=== PATIENT | male | born 1960 | race Caucasian/White ===

== ENCOUNTER 2016-11-13 09:24 | Inpatient (IN) | payer OTHER ==
--- NOTE | 2016-11-13 10:18 | PDOC ---
History of Present Illness - General Chief Complaint: Pain Stated Complaint: ARM PAIN Time Seen by Provider: 11/13/16 09:38 History Source: Patient Exam Limitations: No Limitations - History of Present Illness Occurred: reports: last week Severity: reports: mild, moderate Pain Location: reports: lower extremity, upper extremity Method of Injury: Yes: unknown Modifying Factors: improves with: None Past History - Travel Traveled outside of the country in the last 30 days: No Close contact w/someone who was outside of country & ill: No - Past Medical History Allergies/Adverse Reactions: Allergies Allergy/AdvReac Type Severity Reaction Status Date / Time phenytoin sodium Allergy Unknown Verified 11/13/16 09:31 [From Dilantin] phenytoin sodium extended Allergy Unknown Verified 11/13/16 09:31 [From Dilantin] Home Medications: Ambulatory Orders Amlodipine Besylate [Norvasc -] 10 mg PO DAILY #30 tablet 06/12/13 Aspirin [ASA -] 325 mg PO DAILY #30 tablet 06/13/13 Citalopram Hydrobromide [Citalopram HBr] 20 mg PO DAILY 08/18/15 Atorvastatin Calcium [Lipitor] 10 mg PO HS 12/29/15 Calcium Carbonate/Vitamin D3 [Oyster Shell 500-Vit D3 200 Tb] 1 each PO DAILY Carbidopa/Levodopa [Sinemet Cr 25-100 Tablet] 1 each PO TID 12/29/15 Labetalol HCl [Normodyne -] 100 mg PO DAILY 12/29/15 Lisinopril [Prinivil] 20 mg PO DAILY 12/29/15 Montelukast Na [Singulair -] 10 mg PO HS 12/29/15 Anemia: No Asthma: No (wheezing-since 12/2014) Cancer: No Cardiac Disorders: No CVA: Yes (08/19/14 left arm leg weakness-uses a cane) COPD: No CHF: No Dementia: Yes (parkinsons) Diabetes: No GI Disorders: No Disorders: No HTN: Yes Hypercholesterolemia: Yes Liver Disease: No Seizures: No Thyroid Disease: No - Surgical History Abdominal Surgery: Yes (hernia repair) - Suicide/Smoking/Psychosocial Hx Smoking History: Never smoked Have you smoked in the past 12 months: No Number of Cigarettes Smoked Daily: 20 'Breaking Loose' booklet given: 06/04/13 Hx Alcohol Use: No Drug/Substance Use Hx: No Substance Use Type: None *Physical Exam - Vital Signs Last Vital Signs Temp Pulse Resp BP Pulse Ox 98.3 F 69 18 104/59 97 11/13/16 09:11/13/16 09:29 11/13/16 09:29 11/13/16 09:11/13/16 09:29
[2016-11-13 10:37] LABS: BASOPHIL 0.6 % (0-2.0); EOSINOPHIL 3.7 % (0-4.5); MCH 31.4 pg (25.7-33.7); MEAN CELL VOLUME 92.4 fl (80-96); MEAN PLT VOLUME 8.2 fl (7.5-11.1); NEUTROPHILS 58.4 % (42.8-82.8); PLATELET COUNT 200 K/MM3 (134-434); RDW 13.6 % (11.9-15.9); WHITE BLOOD COUNT 7.7 K/mm3 (4.0-10.0)
[2016-11-13 10:44] LABS: URINE APPEARANCE CLEAR; URINE BILIRUBIN NEGATIVE (NEGATIVE); URINE BLOOD NEGATIVE (NEGATIVE); URINE COLOR YELLOW; URINE GLUCOSE (UA) NEGATIVE (NEGATIVE); URINE KETONE NEGATIVE (NEGATIVE); URINE LEUK ESTERASE TRACE (NEGATIVE); URINE NITRITE NEGATIVE (NEGATIVE); URINE PROTEIN NEGATIVE (NEGATIVE); URINE UROBILINOGEN NEGATIVE mg/dL (0.2-1.0)
[2016-11-13 10:56] LABS: URINE HYALINE CAST 1 /lpf; URINE MUCUS RARE; URINE RBC <1 /hpf (0-3); URINE WBC 2 /hpf (3-5)
[2016-11-13 11:04] LABS: ALBUMIN 3.7 g/dl (3.4-5.0); ALK PHOS 55 U/L (45-117); ANION GAP 7 (8-16); BILIRUBIN,TOTAL 0.4 mg/dL (0.2-1.0); CALCIUM 9.1 mg/dL (8.5-10.1); CO2 25 mmol/L (21-32); CREATININE 1.2 mg/dL (0.7-1.3); GLUCOSE,RANDOM 100 mg/dL (74-106); SGOT/AST 15 U/L (15-37); SGPT/ALT 23 U/L (12-78); TOT PROT 6.9 g/dl (6.4-8.2)
[2016-11-13 11:05] LABS: CPK 81 IU/L (39-308); TROPONIN I < 0.02 ng/ml (0.00-0.05)
--- NOTE | 2016-11-13 11:33 | PDOC ---
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 He reports having burning pain in his extremities for about a week, ranking his pain a 10/10 in pain intensity. He reports having a locking sensation in his right knee since the onset of his pain. He notes having some difficulties speaking, noting having to think before he speaks. He denies any history of trauma or injury. He notes having an aid since his stroke M- for about 4 hours per day. He denies any recent fevers, chills, headache or dizziness. He denies any recent nausea, vomit, diarrhea or constipation. He denies any recent chest pain or shortness of breath. He denies any recent dysuria, frequency, urgency or hematuria. Allergies: NKA Past surgical history: None reported. Social History: Nonsmoker. Denies EtOH use and recreational drug use. Primary Care Physician: Neuro: <Alex Zeng - Last Filed: 11/13/16 11:33> - General History Source: Patient Exam Limitations: No Limitations <Brandy Ndiaye - Last Filed: 11/13/16 15:08> - General Chief Complaint: Pain Stated Complaint: ARM PAIN Time Seen by Provider: 11/13/16 09:38 tPA Exclusion checklist 3-4.5h - Time Elapsed Date last known well: 11/11/16 (uncertain time frame) - Thrombolytic Therapy Candidate Is patient eligible for thrombolytic therapy: No - Exclusion Criteria 3-4.5 hr SBP greater than 185 or DBP greater than 110mmHg despite tx: No Recent IC/spinal surgery,head trauma or stroke<3mos.: No Hx IC hemorrhage, IC neoplasm, AV malformation or aneurysm: No Active internal bleeding: No Blding diathesis(low plt ct, inc PTT,INR>1.7 or use of NOAC): No Symptoms suggest subarachnoid hemorrhage: No CT demonstrates multilobar infarct(>1/3 cerebral hemiphere): No Arterial puncture at noncompressible site in previous 7 days: No Blood glucose concentration less than 50mg/dL (2.7mmol/L): No - Ineligibility reason(s) Reasons No tPA given: Outside of window - delayed arrival (unknown time frame , > 24 hours) <Brandy Ndiaye - Last Filed: 11/13/16 15:08> NIH Stroke Scale - Last Known Well Date/Time & Onset Date Last Known Well: 11/11/16 (unkonwn time frame >24 hours) - Initial Evaluation Level of consciousness: Alert Ask patient the month and their age: Answers both correctly Ask patient to open & close eyes; make fist and let go: Obeys both correctly Best gaze (horizontal eye movement): Normal Visual field testing: No visual field loss Facial paresis (Show teeth/raise eyebrows/close eyes tight): Normal symmetrical movement Motor Function: Left Arm: Drift Motor Function: Right Arm: Normal (extends arm 90 (or 45) degrees for 10 seconds without drift Motor Function: Left Leg: Drift Motor Function: Right Leg: Normal (extends leg 30 degrees for 5 seconds without drift) Limb Ataxia: Present in one limb (left arm) Sensory(Use pinprick test arms,legs,trunk,face/side to side): Normal Best language (Describe picture, name items, read sentences): No Aphasia Dysarthria (read several words): Normal articulation Extinction and Inattention: No abnormality (unknown time frame.) - Total Score NIH Stroke Scale Score: 3 <Brandy Ndiaye - Last Filed: 11/13/16 15:08> Past History <Alex Zeng - Last Filed: 11/13/16 11:33> - Past Medical History Anemia: No Asthma: No (wheezing-since 12/2014) Cancer: No Cardiac Disorders: No CVA: Yes (08/19/14 left arm leg weakness-uses a cane) COPD: No CHF: No Dementia: Yes (parkinsons) Diabetes: No GI Disorders: No Disorders: No HTN: Yes Hypercholesterolemia: Yes Liver Disease: No Seizures: No Thyroid Disease: No - Surgical History Abdominal Surgery: Yes (hernia repair) - Suicide/Smoking/Psychosocial Hx Smoking History: Never smoked Have you smoked in the past 12 months: No Number of Cigarettes Smoked Daily: 20 'Breaking Loose' booklet given: 06/04/13 Hx Alcohol Use: No Drug/Substance Use Hx: No Substance Use Type: None <SenthilBrandy - Last Filed: 11/13/16 15:08> - Past Medical History Allergies/Adverse Reactions: Allergies Allergy/AdvReac Type Severity Reaction Status Date / Time phenytoin sodium Allergy Unknown Verified 11/13/16 09:31 [From Dilantin] phenytoin sodium extended Allergy Unknown Verified 11/13/16 09:31 [From Dilantin] Home Medications: Ambulatory Orders Amlodipine Besylate 10 mg PO DAILY 11/13/16 Citalopram Hydrobromide [Citalopram HBr] 20 mg PO DAILY 11/13/16 Ipratropium/Albuterol Sulfate [Combivent Respimat Inhal [place]] 4 gm IH DAILY Labetalol HCl 100 mg PO DAILY 11/13/16 Lisinopril [Prinivil] 20 mg PO DAILY 11/13/16 Salmeterol/Fluticasone [Advair 250Mcg/50Mcg] 1 inh IH DAILY 11/13/16 Review of Systems - Review of Systems Able to Perform ROS?: Yes Comments:: 11/13/16 11:34 GENERAL/CONSTITUTIONAL: No fever or chills. No weakness. HEAD, EYES, EARS, NOSE AND THROAT: No change in vision. No ear pain or discharge. No sore throat. CARDIOVASCULAR: No chest pain or shortness of breath. RESPIRATORY: No cough, wheezing, or hemoptysis. GASTROINTESTINAL: No nausea, vomiting, diarrhea or constipation. GENITOURINARY: No dysuria, frequency, or change in urination. MUSCULOSKELETAL: +UE/LE pain and weakness. No joint or muscle swelling or pain. No neck or back pain. SKIN: No rash NEUROLOGIC: No headache, vertigo, loss of consciousness, or change in strength/ sensation. ENDOCRINE: No increased thirst. No abnormal weight change. HEMATOLOGIC/LYMPHATIC: No anemia, easy bleeding, or history of blood clots. ALLERGIC/IMMUNOLOGIC: No hives or skin allergy <Alex Zeng - Last Filed: 11/13/16 11:33> *Physical Exam - Vital Signs Last Vital Signs Temp Pulse Resp BP Pulse Ox 98.3 F 69 18 104/59 95 11/13/16 09:29 11/13/16 09:29 11/13/16 09:29 11/13/16 09:29 11/13/16 10:09 - Physical Exam Comments: 11/13/16 11:34 GENERAL: Awake, alert, and fully oriented, in no acute distress HEAD: No signs of trauma EYES: PERRLA, EOMI, sclera anicteric, conjunctiva clear ENT: Auricles normal inspection, hearing grossly normal, nares patent, oropharynx clear without exudates. Moist mucosa NECK: Normal ROM, supple, no lymphadenopathy, JVD, or masses LUNGS: Breath sounds equal, clear to auscultation bilaterally. No wheezes, and no crackles HEART: Regular rate and rhythm, normal S1 and S2, no murmurs, rubs or gallops ABDOMEN: Soft, nontender, normoactive bowel sounds. No guarding, no rebound. No masses EXTREMITIES: +LUE strength ? and LLE strength ?.Normal range of motion, no edema. No clubbing or cyanosis. No cords, erythema, or tenderness NEUROLOGICAL: Cranial nerves II through XII grossly intact. Normal speech, normal gait SKIN: Warm, Dry, normal turgor, no rashes or lesions noted. <Alex Zeng - Last Filed: 11/13/16 11:33> - Vital Signs Last Vital Signs Temp Pulse Resp BP Pulse Ox 98.3 F 69 18 104/59 95 11/13/16 09:29 11/13/16 09:29 11/13/16 09:29 11/13/16 09:29 11/13/16 10:09 <Brandy Ndiaye - Last Filed: 11/13/16 15:08> Heart Score/ECG Review #1 General ECG Interpretation: Sinus Rhythm, Normal Rate (sinus bradycardia 59 bpm) , Normal Intervals, No acute ischemic changes Compared to previous ECG there are: No significant change (comparison 12/29/15) 11/13/16 13:[address] / t wave changes <Brandy Ndiaye - Last Filed: 11/13/16 15:08> ED Treatment Course - LABORATORY CBC & Chemistry Diagram: 11/13/16 10:30 11/13/16 10:30 - ADDITIONAL ORDERS Additional order review: Laboratory Results 11/13/16 11/13/16 11/13/16 10:35 10:30 10:30 Sodium 140 Potassium 4.8 Chloride 108 H Carbon Dioxide 25 Anion Gap 7 L BUN 37 H Creatinine 1.2 Creat Clearance w eGFR > 60 Random Glucose 100 Calcium 9.1 Total Bilirubin 0.4 AST 15 D ALT 23 Alkaline Phosphatase 55 Creatine Kinase 81 Troponin I < 0.02 Total Protein 6.9 Albumin 3.7 Urine Color Yellow Urine Appearance Clear Urine pH 5.0 Urine Protein Negative Urine Glucose (UA) Negative Urine Ketones Negative Urine Blood Negative Urine Nitrite Negative Urine Bilirubin Negative Urine Urobilinogen Negative Urine RBC <1 Urine WBC 2 Ur Epithelial Cells Rare Hyaline Casts 1 Urine Mucus Rare 11/13/16 10:30 RBC 4.50 MCV 92.4 MCHC 34.0 RDW 13.6 MPV 8.2 Neutrophils % 58.4 Lymphocytes % 30.4 Monocytes % 6.9 Eosinophils % 3.7 Basophils % 0.6 <Alex Zeng - Last Filed: 11/13/16 11:33> - LABORATORY CBC & Chemistry Diagram: 11/13/16 10:30 11/13/16 10:30 - ADDITIONAL ORDERS Additional order review: Laboratory Results 11/13/16 11/13/16 11/13/16 10:35 10:30 10:30 Sodium 140 Potassium 4.8 Chloride 108 H Carbon Dioxide 25 Anion Gap 7 L BUN 37 H Creatinine 1.2 Creat Clearance w eGFR > 60 Random Glucose 100 Calcium 9.1 Total Bilirubin 0.4 AST 15 D ALT 23 Alkaline Phosphatase 55 Creatine Kinase 81 Troponin I < 0.02 Total Protein 6.9 Albumin 3.7 Urine Color Yellow Urine Appearance Clear Urine pH 5.0 Urine Protein Negative Urine Glucose (UA) Negative Urine Ketones Negative Urine Blood Negative Urine Nitrite Negative Urine Bilirubin Negative Urine Urobilinogen Negative Urine RBC <1 Urine WBC 2 Ur Epithelial Cells Rare Hyaline Casts 1 Urine Mucus Rare 11/13/16 10:30 RBC 4.50 MCV 92.4 MCHC 34.0 RDW 13.6 MPV 8.2 Neutrophils % 58.4 Lymphocytes % 30.4 Monocytes % 6.9 Eosinophils % 3.7 Basophils % 0.6 - RADIOLOGY Radiology Studies Ordered: Category Date Time Status HEAD CT WITHOUT CONTRAST [CT] Stat CT Scan 11/13/16 10:59 Ordered CHEST PA & LAT [RAD] Stat Radiology 11/13/16 11:00 Ordered <Brandy Ndiaye - Last Filed: 11/13/16 15:08> Medical Decision Making - Medical Decision Making 11/13/16 11:22 55 y M h/o htn, copd, carotid stenosis, prior cva ( 2013) HLD here with progressive bilateral upper extremity arm burning sensation. has had for several days, but worse last few days. no neck or back pain. also c/o right leg " locks up". lives at home alone with home service technician who is there m - F for four hours / day. denies cp or sob. no cough or fever. no other complaints. is able to ambulate with a cane in house. does not have stairs. on exam awake alert lungs clear heart rrr no mrg. abd soft nt nd. ext wwp. strenth on nuero 4/5 upper left ext, 4/5 left lower ext. sensation intact throughout. speech clear. CN intact plan: ct head r/o recurrent cva. labs ekg r/o myositis, electrolyte imbalance, infection. will d/w dr flores. 11/13/16 13:[address] with old left sided infarct, no acute changes. ekg unremarkable. labs normal. cxr normal. pending us left lower extremity. will d/w dr Flores, nuerology. 11/13/16 13:55 CT HEAD no acute changes, cxr negative. ekg unremarkable. labs normal. doppler negative for dvt. paged dr. flores, dr meraz covering. 11/13/16 14:16 d/w dr Lezama, ( nuerology) recommend observation for MRI, per old noted pt has had left arm pain, no documented h/o left sided weakness. pt unable to give accurate time frame, has been going on for several days. 11/13/16 14:18 11/13/16 14:58 <Brandy Ndiaye - Last Filed: 11/13/16 15:08> *DC/Admit/Observation/Transfer - Attestations Scribe Attestion: 11/13/16 11:34 Documentation prepared by Alex Zeng, acting as medical receptionist for Brandy Ndiaye MD. <Alex Zeng - Last Filed: 11/13/16 11:33> - Discharge Dispostion Admit: Yes <Brandy Ndiaye - Last Filed: 11/13/16 15:08> Diagnosis at time of Disposition: Weakness - Referrals Referrals: Demetrius Tpaia PA [Primary Care Provider] -
--- NOTE | 2016-11-13 16:00 | CON.NEURO ---
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 He reports having burning pain in his extremities for about a week, ranking his pain a 10/10 in pain intensity. noted by ER team to have new left sided weakness, though unclear when began > weeks, (?) ; not TPA candidate for that reason. He reports having a locking sensation in his right knee since the onset of his pain. also complains of numbness of his hands BL; He denies any history of trauma or injury. He notes having an aid since his stroke M-F for about 4 hours per day. He denies any recent fevers, chills, headache or dizziness. Allergies: NKA Past surgical history: None reported. CT HD : left PICA and EVERARDO infract chronic. NIH 9. 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 - Alcohol/Substance Use Hx Alcohol Use: No History of Substance Use: reports: None - Smoking History Smoking history: Never smoked Have you smoked in the past 12 months: No Aproximately how many cigarettes per day: 20 - Social History History of Recent Travel: No Home Medications - Allergies Allergies/Adverse Reactions: Allergies Allergy/AdvReac Type Severity Reaction Status Date / Time phenytoin sodium Allergy Unknown Verified 11/13/16 09:31 [From Dilantin] phenytoin sodium extended Allergy Unknown Verified 11/13/16 09:31 [From Dilantin] - Home Medications Home Medications: Ambulatory Orders Amlodipine Besylate 10 mg PO DAILY 11/13/16 Aspirin [ASA -] 81 mg PO HS 11/13/16 Ipratropium/Albuterol Sulfate [Combivent Respimat Inhal [place]] 4 gm IH DAILY Labetalol HCl 100 mg PO DAILY 11/13/16 Lisinopril [Prinivil] 20 mg PO DAILY 11/13/16 Salmeterol/Fluticasone [Advair 250Mcg/50Mcg] 1 inh IH DAILY 11/13/16 Physical Exam-Neuro Vital Signs: Vital Signs Temperature 98.1 F 11/13/16 12:57 Pulse Rate 56 L 11/13/16 12:57 Respiratory Rate 19 11/13/16 12:57 Blood Pressure 121/70 11/13/16 12:57 O2 Sat by Pulse Oximetry (%) 95 11/13/16 10:09 Constitutional: Yes: Well Nourished, No Distress - Neuro Exam Level Of Consciousness: Yes: Alert (awake and alert, EOMI, right facial, left sided weakness 4/5 with inc tone L >R, plantars up BL ) NIH Stroke Scale - Initial Evaluation Level of consciousness: Alert Ask patient the month and their age: Answers both correctly Ask patient to open & close eyes; make fist and let go: Obeys both correctly Best gaze (horizontal eye movement): Normal Visual field testing: No visual field loss Facial paresis (Show teeth/raise eyebrows/close eyes tight): Minor paralysis ( flattened nasolabial fold, asymmetry on smiling) Motor Function: Left Arm: Some effort against gravity Motor Function: Right Arm: Some effort against gravity Motor Function: Left Leg: Some effort against gravity Motor Function: Right Leg: Drift Limb Ataxia: No ataxia Sensory(Use pinprick test arms,legs,trunk,face/side to side): Mild to moderate decrease in sensation Best language (Describe picture, name items, read sentences): No Aphasia Dysarthria (read several words): Normal articulation Extinction and Inattention: No abnormality - Total Score NIH Stroke Scale Score: 9 Imaging - Results Cat Scan: Report Reviewed Problem List - Problems (1) Weakness Code(s): R53.1 - WEAKNESS (2) Carotid artery disease Code(s): I77.9 - DISORDER OF ARTERIES AND ARTERIOLES, UNSPECIFIED (3) Hemiparesis affecting left side as late effect of cerebrovascular accident Code(s): I69.354 - HEMIPLGA FOLLOWING CEREBRAL INFRC AFFECTING LEFT NONDOM SIDE Assessment/Plan HX of CVA with residual right sided weakness with more subacute left sided weakness, ( ? one week) with difficulty ambulating and numbness of hands BL check MRI BRAin and C spine stroke SHORT-DOPPLERS, ECHO, holter etc, lipids, B12, ESR, CACHORRO, tox screen cont ASA , statin for now rehab/PT consult Dr Adkins [phone]
[2016-11-13 16:24] VITALS: BMI 29.7
--- NOTE | 2016-11-13 18:38 | PN ---
Teaching Attending Note Name of Resident: Jesse Khan ATTENDING PHYSICIAN STATEMENT I saw and evaluated the patient. I reviewed the resident's note and discussed the case with the resident. I agree with the resident's findings and plan as documented. SUBJECTIVE: 55 year old male c/o 1 week history of progressively worsening numbness and burning sensation of b/l UE , left more then right . 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 Parkinsons Disease - - c/w current meds
[2016-11-13] MEDS ORDERED: ASPIRIN 81 MG CHEWABLE TABLETS PO SCH (22:00)
[2016-11-13] MEDS ORDERED: oxyCODONE HCL 5 MG TABLET PO ONE (22:03)
--- NOTE | 2016-11-13 23:02 | HP ---
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 He describes the pain as a burning pain which is 10/10 in intensity. The pain does not radiate anywhere and is confined to the affected limbs. He had a recent visit to the ER at [facility] for similar complaints. He was discharged from the ER and instructed to follow with a neurologist as an outpatient. He denies any history of trauma or injury. He denies any recent fevers, chills, headache or dizziness. He denies any recent nausea, vomit, diarrhea or constipation. He denies any recent chest pain or shortness of breath. He denies any recent dysuria, frequency, urgency or hematuria. ER course was notable for: (1) CT head with old infarct on the left and no acute changes (2) neurology consult (3) Recent Travel: PAST MEDICAL HISTORY: - see above PAST SURGICAL HISTORY: - none Social History: Smoking: denies Alcohol: denies Drugs: denies Family History: Allergies phenytoin sodium [From Dilantin] Allergy (Unknown, Verified 11/13/16 09:31) Pt states was given to him by accident as child. phenytoin sodium extended [From Dilantin] Allergy (Unknown, Verified 11/13/16 09 :31) Pt states was given to him by accident as child. HOME MEDICATIONS: Home Medications Medication Instructions Recorded Amlodipine Besylate 10 mg PO DAILY 11/13/16 Aspirin [ASA -] 81 mg PO HS 11/13/16 Atorvastatin Ca [Lipitor] 20 mg PO HS 11/13/16 Ipratropium/Albuterol Sulfate 4 gm IH DAILY 11/13/16 [Combivent Respimat Inhal [place]] Labetalol HCl 100 mg PO DAILY 11/13/16 Lisinopril [Prinivil] 20 mg PO DAILY 11/13/16 Salmeterol/Fluticasone [Advair 1 inh IH DAILY 11/13/16 250Mcg/50Mcg] REVIEW OF SYSTEMS CONSTITUTIONAL: Absent: fever, chills, diaphoresis, generalized weakness, malaise, loss of appetite, weight change HEENT: Absent: rhinorrhea, nasal congestion, throat pain, throat swelling, difficulty swallowing, mouth swelling, ear pain, eye pain, visual changes CARDIOVASCULAR: Absent: chest pain, syncope, palpitations, irregular heart rate, lightheadedness , peripheral edema RESPIRATORY: Absent: cough, shortness of breath, dyspnea with exertion, orthopnea, wheezing, stridor, hemoptysis GASTROINTESTINAL: Absent: abdominal pain, abdominal distension, nausea, vomiting, diarrhea, constipation, melena, hematochezia GENITOURINARY: Absent: dysuria, frequency, urgency, hesitancy, hematuria, flank pain, genital pain MUSCULOSKELETAL: Absent: myalgia, arthralgia, joint swelling, back pain, neck pain SKIN: Absent: rash, itching, pallor HEMATOLOGIC/IMMUNOLOGIC: Absent: easy bleeding, easy bruising, lymphadenopathy, frequent infections ENDOCRINE: Absent: unexplained weight gain, unexplained weight loss, heat intolerance, cold intolerance NEUROLOGIC: Absent: headache, dizziness, unsteady gait, seizure, mental status changes, bladder or bowel incontinence PSYCHIATRIC: Absent: anxiety, depression, suicidal or homicidal ideation, hallucinations. PHYSICAL EXAMINATION Vital Signs - 24 hr 11/13/16 11/13/16 16:19 19:09 Temperature 97.6 F 97.8 F Pulse Rate 55 L 59 L Respiratory 18 20 Rate Blood Pressure 130/75 134/84 O2 Sat by Pulse 96 Oximetry (%) GENERAL: Awake, alert, and fully oriented, in no acute distress. HEAD: Normal with no signs of trauma. EYES: Pupils equal, round and reactive to light, extraocular movements intact, sclera anicteric, conjunctiva clear. No lid lag. EARS, NOSE, THROAT: Ears normal, nares patent, oropharynx clear without exudates. Moist mucous membranes. NECK: Normal range of motion, supple without lymphadenopathy, JVD, or masses. LUNGS: Breath sounds equal, b/l inspiratory and expiratory wheezes. no crackles . No accessory muscle use. HEART: Regular rate and rhythm, normal S1 and S2 without murmur, rub or gallop. ABDOMEN: Soft, nontender, not distended, normoactive bowel sounds, no guarding, no rebound, no masses. No hepatomegaly or splenomegaly. MUSCULOSKELETAL: Normal range of motion at all joints. No bony deformities or tenderness. No CVA tenderness. UPPER EXTREMITIES: 2+ pulses, warm, well-perfused. No cyanosis. No clubbing. No peripheral edema. LOWER EXTREMITIES: 2+ pulses, warm, well-perfused. No calf tenderness. No peripheral edema. NEUROLOGICAL: Cranial nerves II-X intact. Normal speech. shuffling gait. 0/5 strength in LUE. Cogwheel rigidity SKIN: Warm, dry, normal turgor, no rashes or lesions noted, normal capillary refill. ASSESSMENT/PLAN: The patient is a 55 year old male, with a significant past medical history of 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 #New onset left sided pain and weakness -Neurology consult -MRI Brain -MRI C-Spine -Carotid dopplers -Echo -ASA 325 -AM CBC, CMP, MAG, PHOS #HTN -continue home norvasc -continue home labetolol -continue home lisinopril #COPD -continue home symbicort -continue home duonebs #FEN -no fluids indicated at this time -monitor lytes -regular diet #Prophy -scds -no gi prophy indicated Visit type - Emergency Visit Emergency Visit: Yes ED Registration Date: 11/13/16 Care time: The patient presented to the Emergency Department on the above date and was hospitalized for further evaluation of their emergent condition. - New Patient This patient is new to me today: Yes Date on this admission: 11/13/16 - Critical Care Critical Care patient: No
[2016-11-14] MEDS: ACETAMINOPHEN 325 MG TABLET (FP) PO PRN ×3 (01:35→22:56)
[2016-11-14 08:37] LABS: BASOPHIL 0.4 % (0-2.0); EOSINOPHIL 4.2 % (0-4.5); MCH 31.6 pg (25.7-33.7); MCHC 33.8 g/dl (32.0-35.9); MEAN CELL VOLUME 93.3 fl (80-96); MEAN PLT VOLUME 8.6 fl (7.5-11.1); PLATELET COUNT 208 K/MM3 (134-434); RDW 13.6 % (11.9-15.9); WHITE BLOOD COUNT 8.2 K/mm3 (4.0-10.0)
[2016-11-14] MEDS ORDERED: PT OWN MED DRAWER 7, Y5N ONE ×2 (09:06→21:15)
[2016-11-14] MEDS: LISINOPRIL 20 MG TABLET (FP) PO SCH (09:08)
[2016-11-14] MEDS: ASPIRIN 325 MG TABLET PO SCH (09:08)
[2016-11-14] MEDS: BUDESONIDE/FORMETEROL FUMARATE 80/4.5 mcg INHALER IH SCH ×3 (09:09→21:17)
[2016-11-14] MEDS: LABETALOL HCL 100 MG TABLET (FP) PO SCH (09:09)
[2016-11-14] MEDS: amLODIPine BESYLATE 10 MG TABLET (FP) PO SCH (09:09)
[2016-11-14 09:10] LABS: ANION GAP 5 (8-16); CALCIUM 9.2 mg/dL (8.5-10.1); CO2 27 mmol/L (21-32); GLUCOSE,RANDOM 139 mg/dL (74-106); PHOSPHOROUS 2.7 mg/dL (2.5-4.9); SGOT/AST 15 U/L (15-37); SGPT/ALT 25 U/L (12-78)
[2016-11-14 09:11] LABS: ALK PHOS 57 U/L (45-117); BILIRUBIN,TOTAL 0.5 mg/dL (0.2-1.0); TOT PROT 7.4 g/dl (6.4-8.2)
[2016-11-14 09:22] LABS: CHOLESTEROL 178 mg/dL (50-200)
[2016-11-14] MEDS ORDERED: PATIENT'S OWN MEDICATION (NON-FORMULARY) (Ipratropium/Albuterol Sulfate [Combivent Respima IH SCH (10:00)
--- NOTE | 2016-11-14 11:19 | EKG ---
Test Reason : Blood Pressure : / mmHG Vent. Rate : 059 BPM Atrial Rate : 059 BPM P-R Int : 160 ms QRS Dur : 090 ms QT Int : 390 ms P-R-T Axes : 039 -03 056 degrees QTc Int : 386 ms SINUS BRADYCARDIA SEPTAL INFARCT , AGE UNDETERMINED ABNORMAL ECG WHEN COMPARED WITH ECG OF 29-DEC-2015 13:41, NO SIGNIFICANT CHANGE WAS FOUND Confirmed by PIERRE VELASQUEZ MD ([id number]) on 11/14/2016 11:19:13 AM Referred By: Confirmed By:PIERRE VELASQUEZ MD
[2016-11-14] MEDS: oxyCODONE HCL 5 MG TABLET PO PRN ×2 (16:44→22:56)
--- NOTE | 2016-11-14 17:49 | PN ---
Teaching Attending Note Name of Resident: Jesse Khan ATTENDING PHYSICIAN STATEMENT I saw and evaluated the patient. I reviewed the resident's note and discussed the case with the resident. I agree with the resident's findings and plan as documented. SUBJECTIVE:continues to have B/L UE burning L >R has been progressively worsening for several weeks. also having LUE/LLE weakness Lower>upper. states he had similar symptoms to his R side when he was diagnosed with CVA several years ago but that was more severe in presentation. states he feels like there is a delay in reaction. he tells his arm to move and there is some time prior to his arm doing the action, was seeing Dr Araya who told him he had parkinsons and started him on sinemet and mirapex which he stopped himself because he contributed his symptoms to that. denies CP, SOB< fever, chills, N/V/ C/D, slurred speech OBJECTIVE: Last Vital Signs Temp Pulse Resp BP Pulse Ox 98.0 F 62 18 107/64 97 11/14/16 14:33 11/14/16 14:33 11/14/16 14:33 11/14/16 14:33 11/14/16 00:30 General NAD Neuro CN II-XII grossly intact. sensation decreased L hand limited to the digits , sensation grossly intact in the B/L LE. no propioception to the digits to the L digits. 2/5 LUE and LLE. muscle weakness in equal in the proximal and distal muscle on the LUE but worse in distal muscles on LLE. unable to pronate/ supinate on LUE + ataxic gait no bone point tenderness over cervical spine. no loss of sensation across the upper back ASSESSMENT AND PLAN: 55yo M PMH CVA with residual R sided weakness, HTN, Parkinsons, Carotid stenosis presented with L hemiparesis x1 week 1. L sided weakness/burning- symptoms can be consistent with sub-acute CVA however seems pt had symptoms prior to the week but also stated he had some burning earlier that has been progressively worsening and contributed it to his parkinsons meds. would hold meds for now. MRI/MRI head and neck. carotid doppler and echo negative for acute. if this is negative can consider EMG however doubt would be helpful. does not seem like its muscular disease as it seems mostly equal in the extremities. check A1c to r/o DM. 2. MYRTLE- likley dehdration. now improved 3. Parkinsons- hold meds for now. await eval and re-start at neuro discretion 4. HTN- controlled. on labetolol, lisinopril,. norvasc 5. PT eval
[2016-11-14] MEDS: ATORVASTATIN CA 20 MG TABLET (FP) PO SCH (21:17)
--- NOTE | 2016-11-14 23:53 | PN ---
Physical Exam: SUBJECTIVE: Patient seen and examined at bedside. patient complaining of same pain and burning in both hands in left foot, 11/10 on the pain scale. No other complaints OBJECTIVE: Vital Signs Period Temp Pulse Resp BP Sys/Kovacs Pulse Ox Last 24 Hr 97.4 F-98.8 F 57-80 14-20 107-131/64-80 97-97 GENERAL: The patient is awake, alert, and fully oriented, in no acute distress. Patient appears chachetic with prominent surface veins and enlarged knees. HEAD: Normal with no signs of trauma. EYES: extraocular movements intact, sclera anicteric, conjunctiva clear. No ptosis. ENT: Ears normal, nares patent, oropharynx clear without exudates, moist mucous membranes. NECK: Trachea midline, full range of motion, supple. LUNGS: Breath sounds equal, inspiratory and expiratory wheezes, no crackles, no accessory muscle use. HEART: Regular rate and rhythm, S1, S2 without murmur, rub or gallop. ABDOMEN: Soft, nontender, nondistended, normoactive bowel sounds, no guarding, no rebound. EXTREMITIES: 2+ pulses, warm, well-perfused, no edema. NEUROLOGICAL: Cranial nerves II through X grossly intact. Normal speech, gait not observed. Patient w/ 4/5 strength in left upper and lower extremities and 3/5 strength on right upper and lower extremities. PSYCH: Normal mood, normal affect. SKIN: Warm, dry, normal turgor, no rashes or lesions noted Laboratory Results - last 24 hr 11/14/16 11/14/16 11/14/16 07:30 07:30 07:30 WBC 8.2 RBC 4.86 Hgb 15.3 Hct 45.4 MCV 93.3 MCH 31.6 MCHC 33.8 RDW 13.6 Plt Count 208 MPV 8.6 Neutrophils % 61.0 Lymphocytes % 29.8 Monocytes % 4.6 Eosinophils % 4.2 Basophils % 0.4 ESR 7 Sodium 138 Potassium 4.4 Chloride 106 Carbon Dioxide 27 Anion Gap 5 L BUN 26 H D Creatinine 1.0 Creat Clearance w eGFR > 60 Random Glucose 139 H D Calcium 9.2 Phosphorus 2.7 D Magnesium 2.0 Total Bilirubin 0.5 D AST 15 ALT 25 Alkaline Phosphatase 57 Total Protein 7.4 Albumin 4.0 Triglycerides Cholesterol Total LDL Cholesterol HDL Cholesterol 11/14/16 07:30 WBC RBC Hgb Hct MCV MCH MCHC RDW Plt Count MPV Neutrophils % Lymphocytes % Monocytes % Eosinophils % Basophils % ESR Sodium Potassium Chloride Carbon Dioxide Anion Gap BUN Creatinine Creat Clearance w eGFR Random Glucose Calcium Phosphorus Magnesium Total Bilirubin AST ALT Alkaline Phosphatase Total Protein Albumin Triglycerides 230 H D Cholesterol 178 D Total LDL Cholesterol 71 HDL Cholesterol 61 H D Active Medications Generic Name Dose Route Start Last Admin Trade Name Freq PRN Reason Stop Dose Admin Acetaminophen 650 mg 11/13/16 22:04 11/14/16 01:35 Tylenol - PO 650 mg Q6H PRN Administration FEVER OR PAIN Acetaminophen 325 mg 11/14/16 15:51 11/14/16 22:56 Tylenol - PO 325 mg Q6H PRN Administration PAIN Amlodipine Besylate 10 mg 11/14/16 10:00 11/14/16 09:09 Norvasc - PO 10 mg DAILY RADHA Administration Aspirin 325 mg 11/14/16 10:00 11/14/16 09:08 Asa - PO 325 mg DAILY RADHA Administration Atorvastatin Calcium 20 mg 11/14/16 22:00 11/14/16 21:17 Lipitor - PO 20 mg HS RADHA Administration Budesonide/Formoterol Fumarate 1 puff 11/14/16 10:00 11/14/16 21:17 Symbicort 80/4.5mcg - IH 1 puff BID RADHA Administration Labetalol HCl 100 mg 11/14/16 10:00 11/14/16 09:09 Normodyne - PO 100 mg DAILY RADHA Administration Lisinopril 20 mg 11/14/16 10:00 11/14/16 09:08 Prinivil PO 20 mg DAILY RADHA Administration Non-Formulary Medication 4 gm 11/14/16 10:00 Ipratropium/Albuterol Sulfate [Combivent Respimat Inhal [place]] IH DAILY RADHA Oxycodone HCl 5 mg 11/14/16 15:50 11/14/16 22:56 Roxicodone - PO 5 mg Q6H PRN Administration PAIN ASSESSMENT/PLAN: The patient is a 55 year old male, with a significant past medical history of 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 #New onset left sided pain and weakness 2/2 CVA vs other neurological process vs autoimmune -Neurology consult -MRI Brain and cspine: no significant change since 2015 -Carotid dopplers: moderate atherosclerotic disease w/o stenosis -Echo: no change since 06/05/2013 -ASA 325 to decrease potential inflammation and for anticoagulation -f/u CACHORRO, ESR -check A1c in AM -percocet 5/325 Q6H prn pain #HTN- controlled -continue home norvasc -continue home labetolol -continue home lisinopril #COPD- controlled -continue home symbicort -continue home duonebs #HLD -continue home lipitor #FEN -no fluids indicated at this time -monitor lytes -regular diet #Prophy -scds -no gi prophy indicated #Dispo -admitted for neuro workup Visit type - Emergency Visit Emergency Visit: Yes ED Registration Date: 11/13/16 Care time: The patient presented to the Emergency Department on the above date and was hospitalized for further evaluation of their emergent condition. - New Patient This patient is new to me today: No - Critical Care Critical Care patient: No
[2016-11-15] MEDS: ACETAMINOPHEN 325 MG TABLET (FP) PO PRN ×3 (04:37→21:14)
[2016-11-15] MEDS: oxyCODONE HCL 5 MG TABLET PO PRN ×3 (04:37→21:13)
[2016-11-15 08:25] LABS: MCH 31.5 pg (25.7-33.7); MCHC 33.9 g/dl (32.0-35.9); MEAN CELL VOLUME 92.9 fl (80-96); MEAN PLT VOLUME 8.5 fl (7.5-11.1); PLATELET COUNT 210 K/MM3 (134-434); RDW 13.6 % (11.9-15.9)
[2016-11-15 09:13] LABS: ANION GAP 7 (8-16); CALCIUM 9.6 mg/dL (8.5-10.1); CO2 27 mmol/L (21-32); CREATININE 0.9 mg/dL (0.7-1.3); GLUCOSE,RANDOM 93 mg/dL (74-106)
[2016-11-15] MEDS ORDERED: PT OWN MED DRAWER 7, Y5N ONE ×2 (10:41→20:37)
[2016-11-15] MEDS: ASPIRIN 325 MG TABLET PO SCH (10:46)
[2016-11-15] MEDS: LABETALOL HCL 100 MG TABLET (FP) PO SCH (10:47)
[2016-11-15] MEDS: BUDESONIDE/FORMETEROL FUMARATE 80/4.5 mcg INHALER IH SCH ×2 (10:47→21:10)
[2016-11-15] MEDS: LISINOPRIL 20 MG TABLET (FP) PO SCH (10:47)
[2016-11-15] MEDS: amLODIPine BESYLATE 10 MG TABLET (FP) PO SCH (10:47)
--- NOTE | 2016-11-15 10:48 | PN ---
Progress Note, Physician Chief Complaint: arm pain History of Present Illness: Patient reports increasing arm pain, though pain has been going on for about 6 months. He best describes it as burning, but when I repeat the word burning, he then tells me that it isn't burning, suggesting that the description is at best an approximation (as is so often the case with abnormal sensations). He survived a stroke about 2 1/2 years ago affecting his right side and had marked improvement with rehab. He has been followed by Dr. Araya as an outpatient and has been subsequently diagnosed with parkinsonism. He was given pramipexole for the pain, suggesting to me that Dr. Araya may have thought that the pain was a restless legs equivalent, but the patient stopped the pramipexole when he thought that it made the pain worse. He says that he has a little discomfort on the left side, but that it is mostly in the right arm, deep (in the veins, not on the surface) and aggravated by closing his hand). - Current Medication List Current Medications: Active Medications Acetaminophen (Tylenol -) 650 mg PO Q6H PRN PRN Reason: FEVER OR PAIN Last Admin: 11/14/16 01:35 Dose: 650 mg Acetaminophen (Tylenol -) 325 mg PO Q6H PRN PRN Reason: PAIN Last Admin: 11/15/16 04:37 Dose: 325 mg Amlodipine Besylate (Norvasc -) 10 mg PO DAILY [facility] Last Admin: 11/14/16 09:09 Dose: 10 mg Aspirin (Asa -) 325 mg PO DAILY [facility] Last Admin: 11/14/16 09:08 Dose: 325 mg Atorvastatin Calcium (Lipitor -) 20 mg PO HS [facility] Last Admin: 11/14/16 21:17 Dose: 20 mg Budesonide/Formoterol Fumarate (Symbicort 80/4.5mcg -) 1 puff IH BID [facility] Last Admin: 11/14/16 21:17 Dose: 1 puff Labetalol HCl (Normodyne -) 100 mg PO DAILY [facility] Last Admin: 11/14/16 09:09 Dose: 100 mg Lisinopril (Prinivil) 20 mg PO DAILY [facility] Last Admin: 11/14/16 09:08 Dose: 20 mg Non-Formulary Medication (Ipratropium/Albuterol Sulfate [Combivent Respimat Inhal [place]]) 4 gm IH DAILY RADHA Oxycodone HCl (Roxicodone -) 5 mg PO Q6H PRN PRN Reason: PAIN Last Admin: 11/15/16 04:37 Dose: 5 mg - Objective Vital Signs: Vital Signs Temperature 97.8 F 11/15/16 06:00 Pulse Rate 54 L 11/15/16 06:00 Respiratory Rate 20 11/15/16 06:00 Blood Pressure 120/71 11/15/16 06:00 O2 Sat by Pulse Oximetry (%) 97 11/14/16 21:00 Neurological: Yes: Other (Level of consciousness: Alert Ask patient the month and their age: Answers both correctly Ask patient to open & close eyes; make fist and let go: Obeys both correctly Best gaze (horizontal eye movement): Normal Visual field testing: No visual field loss Facial paresis (Show teeth/ raise eyebrows/close eyes tight): Minor paralysis (flattened nasolabial fold, asymmetry on smiling) Motor Function: Left Arm: Some effort against gravity Motor Function: Right Arm: Some effort against gravity Motor Function: Left Leg: Some effort against gravity Motor Function: Right Leg: Drift Limb Ataxia: No ataxia Sensory(Use pinprick test arms,legs,trunk,face/side to side): Mild to moderate decrease in sensation on right Best language (Describe picture, name items, read sentences): No Aphasia Dysarthria (read several words): Normal articulation Extinction and Inattention: No abnormality) Labs: CBC, BMP 11/15/16 07:30 11/15/16 07:30 - ....Imaging Ultrasound: Report Reviewed (no hemodynamically significant stenosis noted, though plaque present, left greater than right.) MRI: Report Reviewed (There is high grade stenosis of right distal internal carotid artery.), Image Reviewed (he has old infarcts in the left cerebellum, left [place], and (to my eyes, lateral to the left thalamus, possibly with some thalamic involvement)) Problem List - Problems (1) Carotid artery disease Assessment/Plan: discrepancy between ultrasound and MRA reports, though MRA tends to overcall, the descrepancy is so great, I think that it is warranted to pursue further testing. Also the MRA is looking at the intracranial more than extracranial carotid so this may be the more important distinction. The bulk of the stenosis is on the assymtpomatic side, but may have implications in terms of collaterals so its worth pursuing from that standpoint. 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 Code(s): M79.603 - PAIN IN ARM, UNSPECIFIED
--- NOTE | 2016-11-15 17:58 | PN ---
Teaching Attending Note Name of Resident: Jesse Khan ATTENDING PHYSICIAN STATEMENT I saw and evaluated the patient. I reviewed the resident's note and discussed the case with the resident. I agree with the resident's findings and plan as documented. SUBJECTIVE: Patient complains of burning in both hands. OBJECTIVE: Vital Signs Period Temp Pulse Resp BP Sys/Kovacs Pulse Ox Last 24 Hr 97.8 F-98.4 F 54-80 18-20 112-144/68-84 97 HEART: S1S2, RRR LUNGS: Clear ABDOMEN: Soft, non-tender, non-distended, normal BS EXTREMITIES: No edema NEUROLOGICAL: Sensation intact, hand grasp 4/5 in both hands Current Medications Generic Name Dose Route Start Last Admin Trade Name Freq PRN Reason Stop Dose Admin Acetaminophen 650 mg 11/13/16 22:04 11/15/16 10:47 Tylenol - PO 650 mg Q6H PRN Administration FEVER OR PAIN Acetaminophen 325 mg 11/14/16 15:51 11/15/16 04:37 Tylenol - PO 325 mg Q6H PRN Administration PAIN Amlodipine Besylate 10 mg 11/14/16 10:00 11/15/16 10:47 Norvasc - PO 10 mg DAILY RADHA Administration Aspirin 325 mg 11/14/16 10:00 11/15/16 10:46 Asa - PO 325 mg DAILY RADHA Administration Atorvastatin Calcium 20 mg 11/14/16 22:00 11/14/16 21:17 Lipitor - PO 20 mg HS RADHA Administration Budesonide/Formoterol Fumarate 1 puff 11/14/16 10:00 11/15/16 10:47 Symbicort 80/4.5mcg - IH 1 puff BID RADHA Administration Gabapentin 300 mg 11/15/16 22:00 Neurontin - PO BID RADHA Labetalol HCl 100 mg 11/14/16 10:00 11/15/16 10:47 Normodyne - PO 100 mg DAILY RADHA Administration Lisinopril 20 mg 11/14/16 10:00 11/15/16 10:47 Prinivil PO 20 mg DAILY RADHA Administration Non-Formulary Medication 4 gm 11/14/16 10:00 Ipratropium/Albuterol Sulfate [Combivent Respimat Inhal [place]] IH DAILY RADHA Oxycodone HCl 5 mg 11/14/16 15:50 09/26/17 10:46 Roxicodone - PO 5 mg Q6H PRN Administration PAIN ASSESSMENT AND PLAN: 55yo M PMH CVA with residual R sided weakness, HTN, Parkinsons, Carotid stenosis presented with L hemiparesis x1 week 1. L sided weakness/burning- symptoms can be consistent with sub-acute CVA however seems pt had symptoms prior to the week but also stated he had some burning earlier that has been progressively worsening and contributed it to his parkinsons meds. would hold meds for now. MRI/MRI head and neck. carotid doppler and echo negative for acute. if this is negative can consider EMG however doubt would be helpful. does not seem like its muscular disease as it seems mostly equal in the extremities. check A1c to r/o DM. 2. MYRTLE- krystinley dehdration. now improved 3. Parkinsons- hold meds for now. await eval and re-start at neuro discretion 4. HTN- controlled. on labetolol, lisinopril,. norvasc 5. PT eval
--- NOTE | 2016-11-15 19:39 | PN ---
Physical Exam: SUBJECTIVE: Patient seen and examined at bedside. He states that the burning in his hands has not gotten better overnight and is only alleviated with Percocet. OBJECTIVE: Vital Signs Period Temp Pulse Resp BP Sys/Kovacs Pulse Ox Last 24 Hr 97.8 F-98.4 F 54-80 18-20 112-144/68-84 97 GENERAL: The patient is awake, alert, and fully oriented, in no acute distress. HEAD: Normal with no signs of trauma. EYES: extraocular movements intact, sclera anicteric, conjunctiva clear. No ptosis. NECK: Trachea midline, full range of motion, supple. LUNGS: Breath sounds equal, inspiratory and expiratory wheezes heard bilaterally , no accessory muscle use. HEART: Regular rate and rhythm, S1, S2 without murmur, rub or gallop. ABDOMEN: Soft, nontender, nondistended, normoactive bowel sounds, no guarding, no rebound. EXTREMITIES: 2+ pulses, warm, well-perfused, no edema. NEUROLOGICAL: Cranial nerves II through X grossly intact. Normal speech, Parkinsonian gait. strength 5/5 in upper extremities and right lower extremity, 4/5 strength in left lower extremity PSYCH: Normal mood, normal affect. SKIN: Warm, dry, normal turgor, no rashes or lesions noted Laboratory Results - last 24 hr 11/15/16 11/15/16 11/15/16 07:30 07:30 07:30 WBC 8.0 RBC 5.05 Hgb 15.9 Hct 46.9 MCV 92.9 MCH 31.5 MCHC 33.9 RDW 13.6 Plt Count 210 MPV 8.5 Sodium 138 Potassium 4.4 Chloride 104 Carbon Dioxide 27 Anion Gap 7 L BUN 24 H Creatinine 0.9 Random Glucose 93 D Hemoglobin A1c % 5.6 D Calcium 9.6 Active Medications Generic Name Dose Route Start Last Admin Trade Name Freq PRN Reason Stop Dose Admin Acetaminophen 650 mg 11/13/16 22:04 11/15/16 10:47 Tylenol - PO 650 mg Q6H PRN Administration FEVER OR PAIN Acetaminophen 325 mg 11/14/16 15:51 11/15/16 04:37 Tylenol - PO 325 mg Q6H PRN Administration PAIN Amlodipine Besylate 5 mg 11/15/16 19:12 Norvasc - PO DAILY RADHA Aspirin 325 mg 11/14/16 10:00 11/15/16 10:46 Asa - PO 325 mg DAILY RADHA Administration Atorvastatin Calcium 20 mg 11/14/16 22:00 11/14/16 21:17 Lipitor - PO 20 mg HS RADHA Administration Budesonide/Formoterol Fumarate 1 puff 11/14/16 10:00 11/15/16 10:47 Symbicort 80/4.5mcg - IH 1 puff BID RADHA Administration Carbidopa/Levodopa 1 each 11/16/16 07:00 Sinemet 25/100 - PO TIDAC RADHA Gabapentin 300 mg 11/15/16 22:00 Neurontin - PO TID RADHA Labetalol HCl 100 mg 11/14/16 10:00 11/15/16 10:47 Normodyne - PO 100 mg DAILY RADHA Administration Lisinopril 20 mg 11/14/16 10:00 11/15/16 10:47 Prinivil PO 20 mg DAILY RADHA Administration Non-Formulary Medication 4 gm 11/14/16 10:00 Ipratropium/Albuterol Sulfate [Combivent Respimat Inhal [place]] IH DAILY RADHA Oxycodone HCl 5 mg 11/14/16 15:50 11/15/16 10:46 Roxicodone - PO 5 mg Q6H PRN Administration PAIN Pramipexole Dihydrochloride 0.125 mg 11/15/16 22:00 Mirapex - PO BID [facility] ASSESSMENT/PLAN: The patient is a 55 year old male, with a significant past medical history of 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 #New onset left sided pain and weakness likely 2/2 to restless limb syndrome 2/ 2 parkinsons -Neurology consult -will restart Sinemet 25/100 TIDAC -will restart pramipexole .125 BID and will increase dose to .25 after two days -continue with gabapentin 300 TID -Will monitor patient's BP as the dopaminergic medications may lower BP -systolic BP goal in the 130's as per neuro; patient has stenosed right internal carotid and is functioning off of collateral flow. -ASA 325 to decrease potential inflammation and for anticoagulation -CACHORRO peding -ESR 7 -HbA1c 5.6 -percocet 5/325 Q6H prn pain #HTN- controlled; SBP goal in 130's as per neuro -decreased home norvasc from 10mg to 5 mg -continue home labetolol -continue home lisinopril #COPD- controlled -continue home symbicort -continue home duonebs #HLD -continue home lipitor #FEN -no fluids indicated at this time -monitor lytes -regular diet #Prophy -scds -no gi prophy indicated #Dispo -admitted for neuro workup Visit type - Emergency Visit Emergency Visit: Yes ED Registration Date: 11/13/16 Care time: The patient presented to the Emergency Department on the above date and was hospitalized for further evaluation of their emergent condition. - New Patient This patient is new to me today: No - Critical Care Critical Care patient: No
[2016-11-15] MEDS: GABAPENTIN 300 MG CAPSULE (FP) PO SCH (21:10)
[2016-11-15] MEDS: ATORVASTATIN CA 20 MG TABLET (FP) PO SCH (21:10)
[2016-11-15] MEDS: PRAMIPEXOLE DIHYDROCHLORIDE 0.125 MG TABLET PO SCH (21:11)
[2016-11-15] MEDS ORDERED: GABAPENTIN 300 MG CAPSULE (FP) PO SCH (22:00)
[2016-11-16] MEDS: oxyCODONE HCL 5 MG TABLET PO PRN ×2 (05:55→11:50)
[2016-11-16] MEDS: GABAPENTIN 300 MG CAPSULE (FP) PO SCH ×2 (05:56→13:23)
[2016-11-16] MEDS: ACETAMINOPHEN 325 MG TABLET (FP) PO PRN ×2 (05:56→11:51)
[2016-11-16] MEDS: CARBIDOPA/LEVODOPA 25/100 TABLET (FP) PO SCH ×2 (05:59→10:42)
[2016-11-16] MEDS ORDERED: PT OWN MED DRAWER 7, Y5N ONE ×2 (06:42→10:40)
[2016-11-16] MEDS ORDERED: amLODIPine BESYLATE 5 MG TABLET (FP) PO SCH (10:00)
[2016-11-16] MEDS: LABETALOL HCL 100 MG TABLET (FP) PO SCH (10:42)
[2016-11-16] MEDS: PRAMIPEXOLE DIHYDROCHLORIDE 0.125 MG TABLET PO SCH (10:42)
[2016-11-16] MEDS: ASPIRIN 325 MG TABLET PO SCH (10:42)
[2016-11-16] MEDS: BUDESONIDE/FORMETEROL FUMARATE 80/4.5 mcg INHALER IH SCH (10:42)
[2016-11-16] MEDS: LISINOPRIL 20 MG TABLET (FP) PO SCH (10:42)
[2016-11-16 13:37] VITALS: BP 113/68; PULSE 64; TEMP 98.6
--- NOTE | 2016-11-16 15:51 | DS ---
Physical Exam: SUBJECTIVE: Patient seen and examined at bedside. Patient states pain in hands are no different. Agrees with plan to restart parkinsons meds. OBJECTIVE: Vital Signs Period Temp Pulse Resp BP Sys/Kovacs Pulse Ox Last 24 Hr 97.8 F-98.6 F 55-65 18-20 113-142/68-80 97-97 PHYSICAL EXAM GENERAL: The patient is awake, alert, and fully oriented, in no acute distress. HEAD: Normal with no signs of trauma. EYES: PERRL, extraocular movements intact, sclera anicteric, conjunctiva clear. ENT: Ears normal, nares patent, oropharynx clear without exudates, moist mucous membranes. NECK: Trachea midline, full range of motion, supple. LUNGS: Breath sounds equal, wheezes in all moss b/l, no crackles, no accessory muscle use. HEART: Regular rate and rhythm, S1, S2 without murmur, rub or gallop. ABDOMEN: Soft, nontender, nondistended, normoactive bowel sounds, no guarding, no rebound, no hepatosplenomegaly, no masses. EXTREMITIES: 2+ pulses, warm, well-perfused, no edema. NEUROLOGICAL: Cranial nerves II through X grossly intact. Normal speech, gait not observed. Strength 5/5 in left limbs, 4/5 in right limbs PSYCH: Normal mood, normal affect. SKIN: Warm, dry, normal turgor, no rashes or lesions noted. 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 In the ED, the Patient was found to have a shuflling gait, left sided weakness and cogwheel rigidity. The patient was admitted to rule out an acute stroke. A head CT showed old strokes on the left and no acute stroke. Dr. Adkins with neurology was consulted. An MRI showed old ischemia and no acute changes. The patient had not taken his parkinson's medications for months. The patient's pain was controlled with percocet. The patient was discharged home with instructions to resume his sinemet and mirapex as well as decrease the dose of his amlodipine to 5mg. He was also started on gabapentin TID. He was instructed to return to his primary care doctor in one week to have his BP checked to assess whether the amlodipine needs to be increased again. He was also instructed to follow up with Dr. Araya within one week. Date of Discharge: 11/16/16 Minutes to complete discharge: 20 Discharge Summary Reason For Visit: WEAKNESS Current Active Problems Arm pain (Acute) Hemiparesis affecting left side as late effect of cerebrovascular accident ( Acute) Weakness (Acute) Condition: Stable - Instructions Diet, Activity, Other Instructions: Your arm burning and pain may have been due to advancement of your parkinsons disease and restless limb syndrome. You are being restarted on Sinemet 25/100 three times a day with meals. You will also be started on pramipexole 0.125 mg twice a day to be taken once tonight and two times tomorrow. Then you will need to continue taking this medication at a dose of 0.25 mg twice a day. You will also take gabapentin 300 mg three times a day for your arm burning / pain. These medications have been prescribed to your pharmacy. Your amlodipine has also been lowered to 5 mg daily instead of the 10 mg it was at previously. Please follow up with your primary care doctor in 1 week to have your blood pressure checked and to assess whether to keep you on 5 mg of amlodipine or to go back on 10 mg of amlodipine. Your blood pressure goal is for your systolic blood pressure to be in the 130s (due to your requiring slightly elevated blood pressure for your collateral circulation in your brain as was explained in the hospital to you). You will also need to follow up with Dr. Araya in 1 week. Please call your doctor or come back to the ER if your symptoms worsen. Referrals: Rainer Araya MD [Staff Physician] - 1 Week Demetrius Tapia PA [Primary Care Provider] - 1 Week Disposition: HOME - Home Medications Comprehensive Discharge Medication List: Ambulatory Orders Amlodipine Besylate 10 mg PO DAILY 11/13/16 Aspirin [ASA -] 81 mg PO HS 11/13/16 Atorvastatin Ca [Lipitor] 20 mg PO HS 11/13/16 Ipratropium/Albuterol Sulfate [Combivent Respimat Inhal [place]] 4 gm IH DAILY Labetalol HCl 100 mg PO DAILY 11/13/16 Lisinopril [Prinivil] 20 mg PO DAILY 11/13/16 Salmeterol/Fluticasone [Advair 250Mcg/50Mcg -] 1 inh IH DAILY 11/13/16 Amlodipine Besylate [Norvasc -] 5 mg PO DAILY tablet 11/16/16 Atorvastatin Ca [Lipitor] 20 mg PO HS tablet 11/16/16 Carbidopa/Levodopa 25/100 [Sinemet 25/100 -] 1 each PO TIDAC #90 tablet Gabapentin 300 mg PO TID #90 capsule 11/16/16 Pramipexole Di-HCl [Mirapex] 0.25 mg PO BID #60 tab 11/16/16 Pramipexole Dihydrochloride [Mirapex -] 0.125 mg PO BID #3 tablet 11/16/16 Problem List - Problems (1) Arm pain Code(s): M79.603 - PAIN IN ARM, UNSPECIFIED Qualifiers: Laterality: right Qualified Code(s): M79.601 - Pain in right arm (2) Weakness Code(s): R53.1 - WEAKNESS This patient is new to me today: No Emergency Visit: Yes ED Registration Date: 11/13/16 Care time: The patient presented to the Emergency Department on the above date and was hospitalized for further evaluation of their emergent condition. Critical Care patient: No - Discharge Referral Referred to [facility] Med P.C.: No
--- NOTE | 2016-11-16 18:04 | PN ---
Teaching Attending Note Name of Resident: Jesse Khan ATTENDING PHYSICIAN STATEMENT I saw and evaluated the patient. I reviewed the resident's note and discussed the case with the resident. I agree with the resident's findings and plan as documented. SUBJECTIVE: OBJECTIVE: Vital Signs Period Temp Pulse Resp BP Sys/Kovacs Pulse Ox Last 24 Hr 98.1 F-98.6 F 64-65 18-20 113-142/68-79 97-97 ASSESSMENT AND PLAN:
== END 2016-11-16 15:52 | disposition home or self-care (01) | DRG 58 ==
LOC: JERFT 09:24 → JER 09:24 → JERBED 15:03 → OBSVTOIN 15:21 → J6S 17:05
PROVIDERS: ADMIT Internal Medicine; ATTEND Internal Medicine
DX: I69.854 Hemiplegia and hemiparesis following other cerebrovascular disease affecting left non-dominant side (principal); G20 Parkinson's disease; N17.9 Acute kidney failure, unspecified; I10 Essential (primary) hypertension; J44.9 Chronic obstructive pulmonary disease, unspecified; E78.5 Hyperlipidemia, unspecified; I65.29 Occlusion and stenosis of unspecified carotid artery; R53.1 Weakness
CPT/HCPCS: 36415; 70450-TC; 70544-TC; 70551-TC; 71020-TC; 72141-TC; 80048; 80053; 80061; 80171; 81003; 81015; 83036; 83735; 84100; 84484; 85025; 85027; 85651; 86038; 93005; 93010; 93306-TC; 93880-TC; 93971-TC; 97116-GP; 97161-GP; 99284-25; G0378

== ENCOUNTER 2016-11-24 08:16 | Emergency (ER) | payer OTHER ==
[2016-11-24 08:21] VITALS: BP 110/62; PULSE 66; TEMP 98.3; BMI 28.3
--- NOTE | 2016-11-24 09:13 | PDOC ---
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 He reports having burning pain in his extremities or one month, was told to follow-up with Dr. Araya however patient was unable to obtain an appointment until December 13. Patient states that his Neurontin is not working and is requesting other pain medication. No change in symptoms since previous evaluation. He denies any history of trauma or injury. Timing/Duration: other (greater than 1 month) Severity: moderate Associated Symptoms: reports: denies symptoms Past History - Past Medical History Allergies/Adverse Reactions: Allergies Allergy/AdvReac Type Severity Reaction Status Date / Time phenytoin sodium Allergy Unknown Verified 11/24/16 08:21 [From Dilantin] phenytoin sodium extended Allergy Unknown Verified 11/24/16 08:21 [From Dilantin] Home Medications: Ambulatory Orders Amlodipine Besylate 10 mg PO DAILY 11/13/16 Aspirin [ASA -] 81 mg PO HS 11/13/16 Atorvastatin Ca [Lipitor] 20 mg PO HS 11/13/16 Ipratropium/Albuterol Sulfate [Combivent Respimat Inhal [place]] 4 gm IH DAILY Labetalol HCl 100 mg PO DAILY 11/13/16 Lisinopril [Prinivil] 20 mg PO DAILY 11/13/16 Salmeterol/Fluticasone [Advair 250Mcg/50Mcg -] 1 inh IH DAILY 11/13/16 Carbidopa/Levodopa 25/100 [Sinemet 25/100 -] 1 each PO TIDAC #90 tablet Gabapentin 300 mg PO TID #90 capsule 11/16/16 Anemia: No Asthma: (wheezing-since 12/2014) Cancer: No Cardiac Disorders: No CVA: Yes (08/19/14 right sided weakness) COPD: Yes CHF: No Dementia: Yes (parkinsons) Diabetes: No GI Disorders: No Disorders: No HTN: Yes Hypercholesterolemia: Yes Liver Disease: No Seizures: No Thyroid Disease: No - Surgical History Abdominal Surgery: Yes (hernia repair) - Suicide/Smoking/Psychosocial Hx Smoking History: Never smoked Have you smoked in the past 12 months: No Number of Cigarettes Smoked Daily: 20 Information on smoking cessation initiated: No 'Breaking Loose' booklet given: 06/04/13 Hx Alcohol Use: No Drug/Substance Use Hx: No Substance Use Type: None Review of Systems - Review of Systems Constitutional: No: Symptoms Reported HEENTM: No: Symptoms Reported Respiratory: No: Symptoms reported Cardiac (ROS): No: Symptoms Reported ABD/GI: No: Symptoms Reported : No: Symptoms Reported Musculoskeletal: Yes: Joint Pain, Muscle Pain. No: Joint Swelling, Muscle Weakness, Neck Pain, Joint Stiffness Integumentary: No: Symptoms Reported, Erythema, Pallor, Pruritus, Rash Neurological: Yes: Unsteady Gait ( walk with a cane). No: Symptoms reported, Paresthesia, Tingling, Tremors, Weakness, Dizziness All Other Systems: Reviewed and Negative *Physical Exam - Vital Signs Last Vital Signs Temp Pulse Resp BP Pulse Ox 98.3 F 66 17 110/62 97 11/24/16 08:19 11/24/16 08:19 11/24/16 08:19 11/24/16 08:19 11/24/16 08:19 - Physical Exam General Appearance: Yes: Appropriately Dressed. No: Apparent Distress Neck: negative: Tender, Tender lateral, Tender midline Respiratory/Chest: positive: Lungs Clear, Normal Breath Sounds. negative: Respiratory Distress, Accessory Muscle Use Cardiovascular: positive: Regular Rhythm, Regular Rate Gastrointestinal/Abdominal: positive: Normal Bowel Sounds, Soft. negative: Tender Musculoskeletal: positive: Normal Inspection. negative: Decreased Range of Motion, Muscle Spasm, Vertebral Tenderness Extremity: positive: Normal Capillary Refill, Normal Inspection, Normal Range of Motion, Pelvis Stable. negative: Tender, Delayed Capillary Refill, Swelling , Calf Tenderness, Erythema, Inflammation Integumentary: positive: Normal Color, Dry. negative: Erythema, Rash, Swelling , Ecchymosis, Bruising Neurologic: positive: Alert, Normal Mood/Affect, Normal Response Medical Decision Making - Medical Decision Making 11/24/16 20:15 A/P: Patient with chronic pain to knees and left arm, called Dr. Araya was able to obtain an appointment for patient today at 12:30 PM, patient will report immediately to office for evaluation and treatment. I discussed the physical exam findings and final diagnoses with the patient. I answered all of the patient's questions. The patient was satisfied with the care received and felt comfortable with the discharge plan and treatment plan. The patient will immediately for follow-up and will return to the Emergency Department with any new, persistent or worsening symptoms. *DC/Admit/Observation/Transfer Diagnosis at time of Disposition: Chronic pain of left upper extremity - Discharge Dispostion Disposition: HOME Condition at time of disposition: Good Admit: No - Referrals Referrals: Rainer Araya MD [Staff Physician] - (Follow up today at 12:30)
== END 2016-11-24 09:19 | disposition home or self-care (01) ==
LOC: JERFT 08:16
DX: M79.602 Pain in left arm (principal); I69.851 Hemiplegia and hemiparesis following other cerebrovascular disease affecting right dominant side; I10 Essential (primary) hypertension; I65.29 Occlusion and stenosis of unspecified carotid artery; J44.9 Chronic obstructive pulmonary disease, unspecified; G31.83 Neurocognitive disorder with Lewy bodies; F02.80 Dementia in other diseases classified elsewhere, unspecified severity, without behavioral disturbance, psychotic disturbance, mood disturbance, and anxiety; R26.89 Other abnormalities of gait and mobility; Z99.89 Dependence on other enabling machines and devices
CPT/HCPCS: 99281-25

== ENCOUNTER 2016-11-29 09:25 | Observation (INO) | payer OTHER ==
[2016-11-29 09:39] VITALS: BMI 25.8
[2016-11-29 10:48] LABS: BASOPHIL 0.4 % (0-2.0); EOSINOPHIL 2.9 % (0-4.5); MCH 30.7 pg (25.7-33.7); MCHC 33.1 g/dl (32.0-35.9); MEAN CELL VOLUME 92.8 fl (80-96); NEUTROPHILS 63.5 % (42.8-82.8); PLATELET COUNT 213 K/MM3 (134-434); RDW 13.7 % (11.9-15.9)
[2016-11-29 11:18] LABS: ALBUMIN 3.7 g/dl (3.4-5.0); ALK PHOS 53 U/L (45-117); ANION GAP 10 (8-16); BILIRUBIN,TOTAL 0.5 mg/dL (0.2-1.0); CALCIUM 8.9 mg/dL (8.5-10.1); CO2 24 mmol/L (21-32); GLUCOSE,RANDOM 92 mg/dL (74-106); SGOT/AST 15 U/L (15-37); SGPT/ALT 20 U/L (12-78); TOT PROT 6.6 g/dl (6.4-8.2)
--- NOTE | 2016-11-29 13:11 | PDOC ---
History of Present Illness - General Chief Complaint: Pain Stated Complaint: PAIN Time Seen by Provider: 11/29/16 09:32 History Source: Patient Exam Limitations: No Limitations - History of Present Illness Initial Comments: 11/29/16 12:18 56-year-old male presents to the ED with continual burning to his arms hands and feet for the past few months despite being on Neurontin and Naprosyn. Patient states was seen by Dr. Araya on the fifth which she was told he was started new medication but states went to the pharmacy who stated medication will not be ready to the . Patient states the burning tingling pain is keeping him up at night causing him increased irritability and inability to function on a daily basis. Patient is no other complaints at this time. Patient does have history of CVA with left-sided residual hypertension, high cholesterol , and denies any drug or alcohol use presently. Timing/Duration: constant, getting worse Severity: moderate Associated Symptoms: reports: denies symptoms Past History - Travel Traveled outside of the country in the last 30 days: No Close contact w/someone who was outside of country & ill: No - Past Medical History Allergies/Adverse Reactions: Allergies Allergy/AdvReac Type Severity Reaction Status Date / Time phenytoin sodium Allergy Unknown Verified 11/29/16 09:42 [From Dilantin] phenytoin sodium extended Allergy Unknown Verified 11/29/16 09:42 [From Dilantin] Home Medications: Ambulatory Orders Amlodipine Besylate 10 mg PO DAILY 11/13/16 Aspirin [ASA -] 81 mg PO HS 11/13/16 Atorvastatin Ca [Lipitor] 20 mg PO HS 11/13/16 Ipratropium/Albuterol Sulfate [Combivent Respimat Inhal [place]] 4 gm IH DAILY Labetalol HCl 100 mg PO DAILY 11/13/16 Lisinopril [Prinivil] 20 mg PO DAILY 11/13/16 Salmeterol/Fluticasone [Advair 250Mcg/50Mcg -] 1 inh IH DAILY 11/13/16 Carbidopa/Levodopa 25/100 [Sinemet 25/100 -] 1 each PO TIDAC #90 tablet Gabapentin 300 mg PO TID #90 capsule 11/16/16 Naproxen [Naprosyn -] 500 mg PO BID 11/29/16 Anemia: No Asthma: (wheezing-since 12/2014) Cancer: No Cardiac Disorders: No CVA: Yes (08/19/14 right sided weakness) COPD: Yes CHF: No Dementia: Yes (parkinsons) Diabetes: No GI Disorders: No Disorders: No HTN: Yes Hypercholesterolemia: Yes Liver Disease: No Seizures: No Thyroid Disease: No Other medical history: Parkinson's disease? - Surgical History Abdominal Surgery: Yes (hernia repair) - Suicide/Smoking/Psychosocial Hx Smoking History: Former smoker Have you smoked in the past 12 months: No Number of Cigarettes Smoked Daily: 20 If you are a former smoker, when did you quit?: 2014 Information on smoking cessation initiated: No 'Breaking Loose' booklet given: 06/04/13 Hx Alcohol Use: No Drug/Substance Use Hx: No Substance Use Type: None Patient Lives Alone: No Lives with/in: lives alone Review of Systems - Review of Systems Able to Perform ROS?: Yes Constitutional: No: Symptoms Reported HEENTM: No: Symptoms Reported Respiratory: No: Symptoms reported Cardiac (ROS): No: Symptoms Reported ABD/GI: No: Symptoms Reported : No: Symptoms Reported Musculoskeletal: Yes: Muscle Pain Integumentary: No: Symptoms Reported Neurological: Yes: Other (burning to hands and feet) Hematologic/Lymphatic: No: Symptoms Reported *Physical Exam - Vital Signs Last Vital Signs Temp Pulse Resp BP Pulse Ox 98.6 F 65 18 126/88 95 11/29/16 09:35 11/29/16 09:35 11/29/16 09:35 11/29/16 09:35 11/29/16 09:35 - Physical Exam General Appearance: Yes: Nourished, Appropriately Dressed. No: Apparent Distress HEENT: negative: Pale Conjunctivae Neck: positive: Supple Respiratory/Chest: positive: Lungs Clear, Normal Breath Sounds. negative: Respiratory Distress, Accessory Muscle Use Cardiovascular: positive: Regular Rhythm, Regular Rate. negative: Murmur Gastrointestinal/Abdominal: positive: Soft. negative: Tenderness Musculoskeletal: negative: CVA Tenderness Extremity: positive: Normal Capillary Refill Integumentary: positive: Normal Color, Warm, Moist Neurologic: positive: Normal Mood/Affect, Motor Strength 5/5 ED Treatment Course - LABORATORY CBC & Chemistry Diagram: 11/29/16 10:40 11/29/16 10:40 - ADDITIONAL ORDERS Additional order review: Laboratory Results 11/29/16 10:40 Sodium 141 Potassium 4.6 Chloride 107 Carbon Dioxide 24 Anion Gap 10 BUN 28 H Creatinine 1.0 Creat Clearance w eGFR > 60 Random Glucose 92 Calcium 8.9 Magnesium 2.0 Total Bilirubin 0.5 AST 15 ALT 20 Alkaline Phosphatase 53 Total Protein 6.6 Albumin 3.7 11/29/16 10:40 RBC 4.34 MCV 92.8 MCHC 33.1 RDW 13.7 MPV 8.0 Neutrophils % 63.5 Lymphocytes % 26.2 Monocytes % 7.0 Eosinophils % 2.9 Basophils % 0.4 - Medications Given in the ED: ED Medications Discontinued Medications Generic Name Dose Route Start Last Admin Trade Name Freq PRN Reason Stop Dose Admin Oxycodone/Acetaminophen 1 combo 11/29/16 11:22 11/29/16 11:30 Percocet 5/325 - PO 11/29/16 11:23 1 combo ONCE ONE Administration Medical Decision Making - Medical Decision Making 11/29/16 13:21 Patient here with continual burning to the extremities with history of Parkinson 's, RLS and CVA. Patient was seen by Dr. Araya on the which she was given a new medication called Mirapex but states was unable to pick it up since it was not ready to be filled until the . Patient here with continual burning despite being seen twice here in [facility]. Called and spoke to Dr. Araya who states patient should receive Mirapex 0.25 mg in the ER and discharge home with recommendations to [facility]. He states the pharmacy still is not have the medication that he may come to the office since he has samples for the patient. Patient given 1 dose of Percocet here in the ER for immediate relief of discomfort. patient was ordered for CBC< COMP< AND MAG. 11/29/16 13:29 Called pharmacy Spoke to the pharmacist who states patient had a refill of this medication the and it was dispensed. Will check patient's belongings for Mirapex medication 11/29/16 14:04 As per patient patient stopped taking it on the first after taking it for 3 days without any improvement of symptoms. Patient was given the medication from the hospitalist here in [facility] when he was discharged. Patient stating he does not want to go home and the pain is unbearable despite receiving Percocet here. Patient is requesting that he be admitted. Patient is also requesting another neurologist. Call placed to Dr. Olson. 11/29/16 14:[address] [facility] under Dr. Morris and case discussed with attending. *DC/Admit/Observation/Transfer Diagnosis at time of Disposition: Burning sensation in lower extremity, Intractable pain - Discharge Dispostion Admit: Yes
[2016-11-29] MEDS ORDERED: PRAMIPEXOLE DIHYDROCHLORIDE 0.25 MG TABLET PO ONE (13:27)
--- NOTE | 2016-11-29 14:40 | PDOC ---
*Physical Exam - Vital Signs Last Vital Signs Temp Pulse Resp BP Pulse Ox 98.6 F 65 18 126/88 95 11/29/16 09:35 11/29/16 09:35 11/29/16 09:35 11/29/16 09:35 11/29/16 09:35 ED Treatment Course - LABORATORY CBC & Chemistry Diagram: 11/29/16 10:40 11/29/16 10:40 - ADDITIONAL ORDERS Additional order review: Laboratory Results 11/29/16 10:40 Sodium 141 Potassium 4.6 Chloride 107 Carbon Dioxide 24 Anion Gap 10 BUN 28 H Creatinine 1.0 Creat Clearance w eGFR > 60 Random Glucose 92 Calcium 8.9 Magnesium 2.0 Total Bilirubin 0.5 AST 15 ALT 20 Alkaline Phosphatase 53 Total Protein 6.6 Albumin 3.7 11/29/16 10:40 RBC 4.34 MCV 92.8 MCHC 33.1 RDW 13.7 MPV 8.0 Neutrophils % 63.5 Lymphocytes % 26.2 Monocytes % 7.0 Eosinophils % 2.9 Basophils % 0.4 - RADIOLOGY Radiology Studies Ordered: Category Date Time Status CHEST PA & LAT [RAD] Stat Radiology 11/29/16 14:28 Ordered - Medications Given in the ED: ED Medications Discontinued Medications Generic Name Dose Route Start Last Admin Trade Name Freq PRN Reason Stop Dose Admin Oxycodone/Acetaminophen 1 combo 11/29/16 11:22 11/29/16 11:30 Percocet 5/325 - PO 11/29/16 11:23 1 combo ONCE ONE Administration Pramipexole Dihydrochloride 0.25 mg 11/29/16 13:27 11/29/16 14:15 Mirapex - PO 11/29/16 13:28 0.25 mg ONCE ONE Administration Medical Decision Making - Medical Decision Making 11/29/16 14:40 Pt seen by the Advanced Practice Provider under my direct supervision Ancillary studies reviewed I agree with plan as outlined by the Advanced Practice Provider *DC/Admit/Observation/Transfer Diagnosis at time of Disposition: Burning sensation in lower extremity, Intractable pain - Referrals Referrals: Rainer Araya MD [Primary Care Provider] - - Patient Instructions - Post Discharge Activity
--- NOTE | 2016-11-29 14:43 | HP ---
Admitting History and Physical - Admission History of Present Illness: 55 year old male, with a significant past medical history of CVA in 2013 with residual R sided weakness (hx of smoking 2 packs/day) , carotid stenosis, COPD, and HTN, who presents to the emergency department with burning sensation in his bilateral UE burning sensation because of which he is not able to sleep he was recently admitted for this same problem at hospital started on mirapex and sinemet and he when to see dr ponce on mondaynov 25 for follow up he says he doesnot have parkinson and refuse to take that medicine and wants to see another neurologist in ER he still complaining of bilateral UE burning got percocet and mirapex History Source: Patient, Medical Record - Past Medical History QC ANALYST: Yes: CVA Cardiovascular: Yes: HTN Pulmonary: Yes: COPD - Smoking History Smoking history: Former smoker Have you smoked in the past 12 months: No Aproximately how many cigarettes per day: 20 If you are a former smoker, when did you quit?: 2014 - Alcohol/Substance Use Hx Alcohol Use: No History of Substance Use: reports: None - Social History History of Recent Travel: No Home Medications - Allergies Allergies/Adverse Reactions: Allergies Allergy/AdvReac Type Severity Reaction Status Date / Time phenytoin sodium Allergy Unknown Verified 11/29/16 09:42 [From Dilantin] phenytoin sodium extended Allergy Unknown Verified 11/29/16 09:42 [From Dilantin] - Home Medications Home Medications: Ambulatory Orders Amlodipine Besylate 10 mg PO DAILY 11/13/16 Aspirin [ASA -] 81 mg PO HS 11/13/16 Atorvastatin Ca [Lipitor] 20 mg PO HS 11/13/16 Ipratropium/Albuterol Sulfate [Combivent Respimat Inhal [place]] 4 gm IH DAILY Labetalol HCl 100 mg PO DAILY 11/13/16 Lisinopril [Prinivil] 20 mg PO DAILY 11/13/16 Salmeterol/Fluticasone [Advair 250Mcg/50Mcg -] 1 inh IH DAILY 11/13/16 Carbidopa/Levodopa 25/100 [Sinemet 25/100 -] 1 each PO TIDAC #90 tablet Gabapentin 300 mg PO TID #90 capsule 11/16/16 Naproxen [Naprosyn -] 500 mg PO BID 11/29/16 Review of Systems - Review of Systems Musculoskeletal: reports: Extremity Pain (burning sensation in UE) Physical Examination Vital Signs: Vital Signs Temperature 98.6 F 11/29/16 09:35 Pulse Rate 65 11/29/16 09:35 Respiratory Rate 18 11/29/16 09:35 Blood Pressure 126/88 11/29/16 09:35 O2 Sat by Pulse Oximetry (%) 95 11/29/16 09:35 Constitutional: Yes: Mild Distress Neck: Yes: Trachea Midline Cardiovascular: Yes: Regular Rate and Rhythm, S1, S2 Respiratory: Yes: CTA Bilaterally Gastrointestinal: Yes: Normal Bowel Sounds, Soft Edema: No Neurological: Yes: Alert, Oriented, Other (decreased sensation in LLE) ...Motor Strength: LLE (decreased 3/5), RLE (5/5) Labs: CBC, BMP 11/29/16 10:40 11/29/16 10:40 Problem List - Problems (1) Burning sensation in lower extremity Assessment/Plan: neuro dr abi almaraz neurontin Code(s): R20.8 - OTHER DISTURBANCES OF SKIN SENSATION (2) Hemiparesis affecting left side as late effect of cerebrovascular accident Assessment/Plan: aspirin and statin Code(s): I69.354 - HEMIPLGA FOLLOWING CEREBRAL INFRC AFFECTING LEFT NONDOM SIDE (3) Hypertension Assessment/Plan: norvasc Code(s): I10 - ESSENTIAL (PRIMARY) HYPERTENSION (4) Chronic obstructive airway disease Assessment/Plan: bronchodilators Code(s): J44.9 - CHRONIC OBSTRUCTIVE PULMONARY DISEASE, UNSPECIFIED
[2016-11-29] MEDS ORDERED: GABAPENTIN 300 MG CAPSULE (FP) PO ONE (14:59)
[2016-11-29] MEDS ORDERED: amLODIPine BESYLATE 5 MG TABLET (FP) ONE (15:46)
[2016-11-29] MEDS ORDERED: GABAPENTIN 100 MG CAPSULE (FP) ONE (15:46)
[2016-11-29] MEDS ORDERED: oxyCODONE HCL 5 MG TABLET PO PRN (15:56)
[2016-11-29] MEDS: amLODIPine BESYLATE 10 MG TABLET (FP) PO SCH (15:56)
--- NOTE | 2016-11-29 17:42 | CONSULT ---
Consult - text type - Consultation Consultation Note: Neurology History of Present Illness 56-year-old male presents to the ED with continual burning to his arms hands and feet for the past few months despite being on Neurontin and Naprosyn. Patient states was seen by Dr. Araya for this and showed me a series of medication which included carbidopa/levodopa, gabapentin 300, and naprosyn 500. Patient states the burning tingling pain is keeping him up at night causing him increased irritability and inability to function on a daily basis. Patient does have history of CVA with left-sided residual, hypertension, high cholesterol, and denies any drug or alcohol use presently. Does not have tremor, no rigidity , no masked facies. No bradykinesia noted and we discussed that Sinemet likley not needed. For neuropathy, EMG/NCS may be of benefit but not sure if this would be approved as inpatient study. In the meantime, he could continue Andra 300mg up to three times a day and can further increase to 600mg up to three times a day. Past History - Travel Traveled outside of the country in the last 30 days: No Close contact w/someone who was outside of country & ill: No - Past Medical History Allergies/Adverse Reactions: Allergies Allergy/AdvReac Type Severity Reaction Status Date / Time phenytoin sodium Allergy Unknown Verified 11/29/16 09:42 [From Dilantin] phenytoin sodium extended Allergy Unknown Verified 11/29/16 09:42 [From Dilantin] Home Medications: Ambulatory Orders Amlodipine Besylate 10 mg PO DAILY 11/13/16 Aspirin [ASA -] 81 mg PO HS 11/13/16 Atorvastatin Ca [Lipitor] 20 mg PO HS 11/13/16 Ipratropium/Albuterol Sulfate [Combivent Respimat Inhal [place]] 4 gm IH DAILY Labetalol HCl 100 mg PO DAILY 11/13/16 Lisinopril [Prinivil] 20 mg PO DAILY 11/13/16 Salmeterol/Fluticasone [Advair 250Mcg/50Mcg -] 1 inh IH DAILY 11/13/16 Carbidopa/Levodopa 25/100 [Sinemet 25/100 -] 1 each PO TIDAC #90 tablet Gabapentin 300 mg PO TID #90 capsule 11/16/16 Naproxen [Naprosyn -] 500 mg PO BID 11/29/16 Anemia: No Asthma: (wheezing-since 12/2014) Cancer: No Cardiac Disorders: No CVA: Yes (08/19/14 right sided weakness) COPD: Yes CHF: No Dementia: Yes (parkinsons) Diabetes: No GI Disorders: No Disorders: No HTN: Yes Hypercholesterolemia: Yes Liver Disease: No Seizures: No Thyroid Disease: No Other medical history: Parkinson's disease? - Surgical History Abdominal Surgery: Yes (hernia repair) - Suicide/Smoking/Psychosocial Hx Smoking History: Former smoker Have you smoked in the past 12 months: No Number of Cigarettes Smoked Daily: 20 If you are a former smoker, when did you quit?: 2014 Information on smoking cessation initiated: No 'Breaking Loose' booklet given: 06/04/13 Hx Alcohol Use: No Drug/Substance Use Hx: No Substance Use Type: None Patient Lives Alone: No Lives with/in: lives alone Review of Systems - Review of Systems Able to Perform ROS?: Yes Constitutional: No: Symptoms Reported HEENTM: No: Symptoms Reported Respiratory: No: Symptoms reported Cardiac (ROS): No: Symptoms Reported ABD/GI: No: Symptoms Reported : No: Symptoms Reported Musculoskeletal: Yes: Muscle Pain Integumentary: No: Symptoms Reported Neurological: Yes: Other (burning to hands and feet) Hematologic/Lymphatic: No: Symptoms Reported *Physical Exam - Vital Signs Last Vital Signs Temp Pulse Resp BP Pulse Ox 98.6 F 65 18 126/88 95 11/29/16 09:35 11/29/16 09:35 11/29/16 09:35 11/29/16 09:35 11/29/16 09:35 - Physical Exam General Appearance: Yes: Nourished, Appropriately Dressed. No: Apparent Distress HEENT: negative: Pale Conjunctivae Neck: positive: Supple Respiratory/Chest: positive: Lungs Clear, Normal Breath Sounds. negative: Respiratory Distress, Accessory Muscle Use Cardiovascular: positive: Regular Rhythm, Regular Rate. negative: Murmur Gastrointestinal/Abdominal: positive: Soft. negative: Tenderness Musculoskeletal: negative: CVA Tenderness Extremity: positive: Normal Capillary Refill Integumentary: positive: Normal Color, Warm, Moist Neurologic: positive: Normal Mood/Affect, Motor Strength grossly intact, sensory equal bilaterally, finger to nose normal, gait deferred Laboratory Results 10/10/17 10:40 Sodium 141 Potassium 4.6 Chloride 107 Carbon Dioxide 24 Anion Gap 10 BUN 28 H Creatinine 1.0 Creat Clearance w eGFR > 60 Random Glucose 92 Calcium 8.9 Magnesium 2.0 Total Bilirubin 0.5 AST 15 ALT 20 Alkaline Phosphatase 53 Total Protein 6.6 Albumin 3.7 11/29/16 10:40 RBC 4.34 MCV 92.8 MCHC 33.1 RDW 13.7 MPV 8.0 Neutrophils % 63.5 Lymphocytes % 26.2 Monocytes % 7.0 Eosinophils % 2.9 Basophils % 0.4 Plan 56-year-old male presents to the ED with continual burning to his arms hands and feet for the past few months despite being on Neurontin and Naprosyn. Patient states was seen by Dr. Araya for this and showed me a series of medication which included carbidopa/levodopa, gabapentin 300, and naprosyn 500. Does not have tremor, no rigidity, no masked facies. No bradykinesia noted and we discussed that Sinemet likley not needed. For neuropathy, EMG/NCS may be of benefit but not sure if this would be approved as inpatient study. Can be done as outpatient In the meantime, he could continue Anrda 300mg up to three times a day and can further increase to 600mg up to three times a day. If this is not effective, Lyrica 100 three times a day can be tried Check B12, folate, A1C Topical ointment can also be given Continue blood pressure medication, goal BP < 140/90 Continue statin for HLD, goal LDL <100
[2016-11-29] MEDS: ATORVASTATIN CA 20 MG TABLET (FP) PO SCH (22:51)
[2016-11-29] MEDS: oxyCODONE HCL 5 MG TABLET PO PRN (22:51)
[2016-11-29] MEDS: LIDOCAINE HCL 5% TOP OINTMENT 50 GM TUBE MM SCH (22:51)
[2016-11-29] MEDS: FLUTICASONE/SALMETEROL 100 MCG/50 MCG DISKUS IH SCH (23:42)
[2016-11-30] MEDS: oxyCODONE HCL 5 MG TABLET PO PRN ×3 (05:40→17:40)
[2016-11-30 06:41] LABS: BASOPHIL 0.3 % (0-2.0); EOSINOPHIL 3.1 % (0-4.5); MCHC 33.6 g/dl (32.0-35.9); MEAN CELL VOLUME 92.2 fl (80-96); NEUTROPHILS 61.3 % (42.8-82.8); PLATELET COUNT 227 K/MM3 (134-434); RDW 13.4 % (11.9-15.9); WHITE BLOOD COUNT 7.3 K/mm3 (4.0-10.0)
[2016-11-30 07:25] LABS: ALBUMIN 3.9 g/dl (3.4-5.0); ANION GAP 9 (8-16); CALCIUM 9.2 mg/dL (8.5-10.1); CO2 26 mmol/L (21-32); GLUCOSE,RANDOM 94 mg/dL (74-106)
[2016-11-30 07:29] LABS: ALK PHOS 61 U/L (45-117); BILIRUBIN,TOTAL 0.4 mg/dL (0.2-1.0); PHOSPHOROUS 3.4 mg/dL (2.5-4.9); SGOT/AST 13 U/L (15-37); SGPT/ALT 26 U/L (12-78); TOT PROT 7.2 g/dl (6.4-8.2)
[2016-11-30] MEDS ORDERED: PT OWN MED DRAWER 7, Y5N ONE ×3 (09:22→22:05)
[2016-11-30] MEDS: amLODIPine BESYLATE 10 MG TABLET (FP) PO SCH (09:26)
[2016-11-30] MEDS: ASPIRIN 81 MG CHEWABLE TABLETS PO SCH (09:26)
[2016-11-30] MEDS: LIDOCAINE HCL 5% TOP OINTMENT 50 GM TUBE MM SCH ×2 (09:28→22:06)
[2016-11-30] MEDS ORDERED: LISINOPRIL 20 MG TABLET (FP) PO SCH (10:00)
[2016-11-30] MEDS: FLUTICASONE/SALMETEROL 100 MCG/50 MCG DISKUS IH SCH ×2 (10:26→22:05)
--- NOTE | 2016-11-30 19:20 | PN ---
Progress Note, Physician Chief Complaint: BL knee pain, BLUE burning History of Present Illness: NAD, limping while ambulating still in pain tried gabapentin 300 mg po TID outpatient-with no resolution of symptoms, would increase the dose. If ineffective would give him trial of Lyrica. - Current Medication List Current Medications: Active Medications Amlodipine Besylate (Norvasc -) 10 mg PO DAILY [facility] Last Admin: 11/30/16 09:26 Dose: 10 mg Aspirin (Asa -) 81 mg PO DAILY [facility] Last Admin: 11/30/16 09:26 Dose: 81 mg Atorvastatin Calcium (Lipitor -) 20 mg PO HS [facility] Last Admin: 11/29/16 22:51 Dose: 20 mg Gabapentin (Neurontin -) 300 mg PO TID [facility] Lidocaine HCl (Xylocaine 5% Top. Ointment) 1 applic MM BID [facility] Last Admin: 11/30/16 09:28 Dose: 1 applic Oxycodone HCl (Roxicodone -) 5 mg PO Q6H PRN PRN Reason: PAIN Last Admin: 11/30/16 17:40 Dose: 5 mg Pramipexole Dihydrochloride (Mirapex -) 0.25 mg PO HS [facility] Fluticasone/Salmeterol (Advair 100mcg/50mcg -) 1 puff IH BID [facility] Last Admin: 11/30/16 10:26 Dose: 1 puff - Objective Vital Signs: Vital Signs Temperature 98.2 F 11/30/16 17:00 Pulse Rate 73 11/30/16 17:00 Respiratory Rate 18 11/30/16 17:00 Blood Pressure 153/87 11/30/16 17:00 O2 Sat by Pulse Oximetry (%) 96 11/30/16 17:00 Constitutional: Yes: Well Nourished, No Distress, Calm Cardiovascular: Yes: Regular Rate and Rhythm Respiratory: Yes: Regular Musculoskeletal: Yes: Joint Stiffness (BL knees), Joint Swelling (BL knees) Neurological: Yes: Alert, Oriented Psychiatric: Yes: Alert, Oriented Labs: CBC, BMP 11/30/16 06:10 11/30/16 06:10 Problem List - Problems (1) Arm pain Assessment/Plan: -pain management -increase gabapentin to 600 mg po TID Code(s): M79.603 - PAIN IN ARM, UNSPECIFIED Qualifiers: Laterality: right Qualified Code(s): M79.601 - Pain in right arm; M79.601 - Pain in right arm (2) Unsteady gait Assessment/Plan: -Physical therapy Code(s): R26.81 - UNSTEADINESS ON FEET (3) Burning sensation Assessment/Plan: -BL Upper extremity -Patient was a heavy alcohol drinker and smoker prior to his CVA in 2014. However, his alcohol levels in 2016 ER visit were high. -check B12,folate, lyme -CACHORRO positive 10/2016, although pattern wasn't performed -last A1c 10/2016 was 5.6 -would need nerve conduction studies Code(s): R20.8 - OTHER DISTURBANCES OF SKIN SENSATION (4) Knee pain, bilateral Assessment/Plan: -recent Xray BL knee showed mild OA Code(s): M25.561 - PAIN IN RIGHT KNEE M25.562 - PAIN IN LEFT KNEE Assessment/Plan see problem list
[2016-11-30] MEDS: ATORVASTATIN CA 20 MG TABLET (FP) PO SCH (21:23)
[2016-11-30] MEDS: GABAPENTIN 300 MG CAPSULE (FP) PO SCH (21:23)
[2016-11-30] MEDS: PRAMIPEXOLE DIHYDROCHLORIDE 0.25 MG TABLET PO SCH (21:24)
[2016-11-30] MEDS ORDERED: GABAPENTIN 300 MG CAPSULE (FP) PO SCH (22:00)
[2016-12-01] MEDS: oxyCODONE HCL 5 MG TABLET PO PRN ×2 (01:50→08:51)
[2016-12-01] MEDS: GABAPENTIN 300 MG CAPSULE (FP) PO SCH ×3 (05:35→21:32)
[2016-12-01 07:26] LABS: BASOPHIL 0.2 % (0-2.0); EOSINOPHIL 3.5 % (0-4.5); MCH 30.6 pg (25.7-33.7); MCHC 33.5 g/dl (32.0-35.9); MEAN CELL VOLUME 91.4 fl (80-96); MEAN PLT VOLUME 8.1 fl (7.5-11.1); NEUTROPHILS 59.1 % (42.8-82.8); PLATELET COUNT 210 K/MM3 (134-434); RDW 13.6 % (11.9-15.9); WHITE BLOOD COUNT 6.9 K/mm3 (4.0-10.0)
[2016-12-01 07:48] LABS: TOT PROT 6.7 g/dl (6.4-8.2)
[2016-12-01 07:51] LABS: ALK PHOS 57 U/L (45-117); FERRITIN 184.546 ng/ml (16.4-293.9)
[2016-12-01 07:54] LABS: ALBUMIN 3.7 g/dl (3.4-5.0); ANION GAP 7 (8-16); BILIRUBIN,TOTAL 0.4 mg/dL (0.2-1.0); CALCIUM 9.2 mg/dL (8.5-10.1); CO2 27 mmol/L (21-32); CREATININE 0.9 mg/dL (0.7-1.3); GLUCOSE,RANDOM 93 mg/dL (74-106); MAGNESIUM 1.8 mg/dL (1.8-2.4); SGOT/AST 10 U/L (15-37); SGPT/ALT 23 U/L (12-78)
[2016-12-01] MEDS ORDERED: PT OWN MED DRAWER 7, Y5N ONE ×2 (08:50→09:42)
[2016-12-01] MEDS: ASPIRIN 81 MG CHEWABLE TABLETS PO SCH (09:38)
[2016-12-01] MEDS: amLODIPine BESYLATE 10 MG TABLET (FP) PO SCH (09:38)
[2016-12-01] MEDS: FLUTICASONE/SALMETEROL 100 MCG/50 MCG DISKUS IH SCH ×2 (09:38→21:32)
[2016-12-01] MEDS: LIDOCAINE HCL 5% TOP OINTMENT 50 GM TUBE MM SCH ×2 (09:39→21:33)
--- NOTE | 2016-12-01 10:23 | PN ---
Progress Note (short form) - Note Progress Note: Neurology History of Present Illness 56-year-old male presents to the ED with continual burning to his arms hands and feet for the past few months despite being on Neurontin and Naprosyn. Patient states was seen by Dr. Araya for this and showed me a series of medication which included carbidopa/levodopa, gabapentin 300, and naprosyn 500. Patient states the burning tingling pain is keeping him up at night causing him increased irritability and inability to function on a daily basis. Patient does have history of CVA with left-sided residual, hypertension, high cholesterol, and denies any drug or alcohol use presently. Does not have tremor, no rigidity , no masked facies. No bradykinesia noted and we discussed that Sinemet likley not needed. For neuropathy, EMG/NCS may be of benefit but not sure if this would be approved as inpatient study. In the meantime, has been started on Andra 600mg three times a day. patient with generalized pain complaints this morning. Still reports numbness, tingling, but also discomfort throughout. Active Medications Amlodipine Besylate (Norvasc -) 10 mg PO DAILY [facility] Last Admin: 12/01/16 09:38 Dose: 10 mg Aspirin (Asa -) 81 mg PO DAILY [facility] Last Admin: 12/01/16 09:38 Dose: 81 mg Atorvastatin Calcium (Lipitor -) 20 mg PO HS [facility] Last Admin: 11/30/16 21:23 Dose: 20 mg Gabapentin (Neurontin -) 600 mg PO TID [facility] Last Admin: 12/01/16 05:35 Dose: 600 mg Lidocaine HCl (Xylocaine 5% Top. Ointment) 1 applic MM BID [facility] Last Admin: 12/01/16 09:39 Dose: 1 applic Oxycodone HCl (Roxicodone -) 5 mg PO Q6H PRN PRN Reason: PAIN Last Admin: 12/01/16 08:51 Dose: 5 mg Pramipexole Dihydrochloride (Mirapex -) 0.25 mg PO HS [facility] Last Admin: 11/30/16 21:24 Dose: 0.25 mg Fluticasone/Salmeterol (Advair 100mcg/50mcg -) 1 puff IH BID [facility] Last Admin: 12/01/16 09:38 Dose: 1 puff *Physical Exam Vital Signs Period Temp Pulse Resp BP Sys/[place]acs Pulse Ox Last 24 Hr 97.9 F-98.3 F 66-82 18-20 124-153/76-94 96-96 - Physical Exam General Appearance: Yes: Nourished, Appropriately Dressed. No: Apparent Distress HEENT: negative: Pale Conjunctivae Neck: positive: Supple Respiratory/Chest: positive: Lungs Clear, Normal Breath Sounds. negative: Respiratory Distress, Accessory Muscle Use Cardiovascular: positive: Regular Rhythm, Regular Rate. negative: Murmur Gastrointestinal/Abdominal: positive: Soft. negative: Tenderness Musculoskeletal: negative: CVA Tenderness Extremity: positive: Normal Capillary Refill Integumentary: positive: Normal Color, Warm, Moist Neurologic: positive: Normal Mood/Affect, Motor Strength grossly intact, sensory equal bilaterally, finger to nose normal, gait deferred CBCD WBC 6.9 K/mm3 (4.0-10.0) 12/01/16 06:30 RBC 4.70 M/mm3 (4.00-5.60) 12/01/16 06:30 Hgb 14.4 GM/dL (11.7-16.9) 12/01/16 06:30 Hct 43.0 % (35.4-49) 12/01/16 06:30 MCV 91.4 fl (80-96) 12/01/16 06:30 MCHC 33.5 g/dl (32.0-35.9) 12/01/16 06:30 RDW 13.6 % (11.9-15.9) 12/01/16 06:30 Plt Count 210 K/MM3 (134-434) 12/01/16 06:30 MPV 8.1 fl (7.5-11.1) 12/01/16 06:30 CMP Sodium 138 mmol/L (136-145) 12/01/16 06:30 Potassium 3.9 mmol/L (3.5-5.1) 12/01/16 06:30 Chloride 104 mmol/L (98-107) 12/01/16 06:30 Carbon Dioxide 27 mmol/L (21-32) 12/01/16 06:30 Anion Gap 7 (8-16) L 12/01/16 06:30 BUN 22 mg/dL (7-18) H 12/01/16 06:30 Creatinine 0.9 mg/dL (0.7-1.3) 12/01/16 06:30 Creat Clearance w eGFR > 60 (>60) 12/01/16 06:30 Calcium 9.2 mg/dL (8.5-10.1) 12/01/16 06:30 Total Bilirubin 0.4 mg/dL (0.2-1.0) 12/01/16 06:30 AST 10 U/L (15-37) L D 12/01/16 06:30 ALT 23 U/L (12-78) 12/01/16 06:30 Alkaline Phosphatase 57 U/L (45-117) 12/01/16 06:30 Total Protein 6.7 g/dl (6.4-8.2) 12/01/16 06:30 Albumin 3.7 g/dl (3.4-5.0) 12/01/16 06:30 Plan 56-year-old male presents to the ED with continual burning to his arms hands and feet for the past few months despite being on Neurontin and Naprosyn. Patient states was seen by Dr. Araya for this and showed me a series of medication which included carbidopa/levodopa, gabapentin 300, and naprosyn 500. Does not have tremor, no rigidity, no masked facies. No bradykinesia noted and we discussed that Sinemet likley not needed. For neuropathy, EMG/NCS may be of benefit but not sure if this would be approved as inpatient study. Can be done as outpatient Andra increased to 600mg up to three times a day. Patient with generalized pain complaints If this is not effective, Lyrica 100 three times a day can be tried May benefit from pain mgmt referral Getting Roxicodone as well Continue blood pressure medication, goal BP < 140/90 Continue statin for HLD, goal LDL <100
[2016-12-01] MEDS ORDERED: oxyCODONE HCL 5 MG TABLET PO PRN (11:02)
[2016-12-01] MEDS ORDERED: CYANOCOBALAMIN (VITAMIN B-12) 1000 MCG/1 ML VIAL IM ONE (11:15)
[2016-12-01 11:35] LABS: ERYTHROCYTE SEDIMENTATION RATE 2 mm/hr (0-20)
--- NOTE | 2016-12-01 15:29 | PN ---
Progress Note, Physician Chief Complaint: BL knee pain, BLUE burning History of Present Illness: NAD, limping while ambulating still in pain gabapentin increased to 600 mg po TID - Current Medication List Current Medications: Active Medications Amlodipine Besylate (Norvasc -) 10 mg PO DAILY [facility] Last Admin: 12/01/16 09:38 Dose: 10 mg Aspirin (Asa -) 81 mg PO DAILY [facility] Last Admin: 12/01/16 09:38 Dose: 81 mg Atorvastatin Calcium (Lipitor -) [address] [facility] Last Admin: 11/30/16 21:23 Dose: 20 mg Gabapentin (Neurontin -) 600 mg PO TID [facility] Last Admin: 12/01/16 14:05 Dose: 600 mg Lidocaine HCl (Xylocaine 5% Top. Ointment) 1 applic MM BID [facility] Last Admin: 12/01/16 09:39 Dose: 1 applic Oxycodone HCl (Roxicodone -) 5 mg PO TID PRN PRN Reason: PAIN Pramipexole Dihydrochloride (Mirapex -) 0.[address] [facility] Last Admin: 11/30/16 21:24 Dose: 0.25 mg Fluticasone/Salmeterol (Advair 100mcg/50mcg -) 1 puff IH BID [facility] Last Admin: 12/01/16 09:38 Dose: 1 puff - Objective Vital Signs: Vital Signs Temperature 98.3 F 12/01/16 09:16 Pulse Rate 82 12/01/16 09:16 Respiratory Rate 20 12/01/16 09:16 Blood Pressure 148/87 12/01/16 09:16 O2 Sat by Pulse Oximetry (%) 96 12/01/16 09:00 Constitutional: Yes: Well Nourished, No Distress, Calm Cardiovascular: Yes: Regular Rate and Rhythm Respiratory: Yes: Regular Musculoskeletal: Yes: Muscle Pain (BLUE, BLLE) Edema: No Peripheral Pulses WNL: Yes Neurological: Yes: Alert, Oriented Psychiatric: Yes: Alert, Oriented Labs: CBC, BMP 12/01/16 06:30 12/01/16 06:30 Problem List - Problems (1) Arm pain Assessment/Plan: -pain management -increase gabapentin to 600 mg po TID -seen by neurology Code(s): M79.603 - PAIN IN ARM, UNSPECIFIED Qualifiers: Laterality: right Qualified Code(s): M79.601 - Pain in right arm; M79.601 - Pain in right arm (2) Unsteady gait Assessment/Plan: -Physical therapy Code(s): R26.81 - UNSTEADINESS ON FEET (3) Burning sensation Assessment/Plan: -BL Upper extremity -Patient was a heavy alcohol drinker and smoker prior to his CVA in 2014. However, his alcohol levels in 2016 ER visit were high. -check B12,folate, lyme -CACHORRO positive 10/2016, although pattern wasn't performed -last A1c 10/2016 was 5.6 -would need nerve conduction studies Code(s): R20.8 - OTHER DISTURBANCES OF SKIN SENSATION (4) Knee pain, bilateral Assessment/Plan: -recent Xray BL knee showed mild OA Code(s): M25.561 - PAIN IN RIGHT KNEE M25.562 - PAIN IN LEFT KNEE Assessment/Plan see problem list
[2016-12-01] MEDS: ATORVASTATIN CA 20 MG TABLET (FP) PO SCH (21:32)
[2016-12-01] MEDS: PRAMIPEXOLE DIHYDROCHLORIDE 0.25 MG TABLET PO SCH (21:33)
[2016-12-02] MEDS: oxyCODONE HCL 5 MG TABLET PO PRN ×3 (02:54→21:11)
[2016-12-02] MEDS: GABAPENTIN 300 MG CAPSULE (FP) PO SCH (05:57)
[2016-12-02 08:07] LABS: SERUM IRON 58 ug/dL (38-169); TOTAL IRON BINDING CAPACITY 253 ug/dL (250-450); UIBC 195 ug/dL (111-343)
[2016-12-02] MEDS ORDERED: ALBUTEROL SO4 2.5/IPRATROPIUM 0.5 INH SOL 3 ML VIAL.NEB. NEB PRN (08:42)
--- NOTE | 2016-12-02 08:42 | PN ---
Progress Note, Physician History of Present Illness: PAIN AND NUMBNESS - Current Medication List Current Medications: Active Medications Amlodipine Besylate (Norvasc -) 10 mg PO DAILY [facility] Last Admin: 12/01/16 09:38 Dose: 10 mg Aspirin (Asa -) 81 mg PO DAILY [facility] Last Admin: 12/01/16 09:38 Dose: 81 mg Atorvastatin Calcium (Lipitor -) 20 mg PO HS [facility] Last Admin: 12/01/16 21:32 Dose: 20 mg Gabapentin (Neurontin -) 800 mg PO TID [facility] Lidocaine HCl (Xylocaine 5% Top. Ointment) 1 applic MM BID [facility] Last Admin: 12/01/16 21:33 Dose: 1 applic Methylprednisolone Sodium Succinate (Solu-Medrol -) 125 mg IVPB ONCE ONE Stop: 12/02/16 08:41 Oxycodone HCl (Roxicodone -) 5 mg PO Q8H PRN PRN Reason: PAIN Last Admin: 12/02/16 02:54 Dose: 5 mg Pramipexole Dihydrochloride (Mirapex -) 0.25 mg PO HS [facility] Last Admin: 12/01/16 21:33 Dose: 0.25 mg Prednisone (Deltasone -) 40 mg PO DAILY [facility] Fluticasone/Salmeterol (Advair 100mcg/50mcg -) 1 puff IH BID [facility] Last Admin: 12/01/16 21:32 Dose: 1 puff - Objective Vital Signs: Vital Signs Temperature 97.9 F 12/02/16 08:35 Pulse Rate 74 12/02/16 08:35 Respiratory Rate 20 12/02/16 08:35 Blood Pressure 126/91 12/02/16 08:35 O2 Sat by Pulse Oximetry (%) 96 12/02/16 02:00 Cardiovascular: Yes: Regular Rate and Rhythm Respiratory: Yes: Regular, CTA Bilaterally Gastrointestinal: Yes: Normal Bowel Sounds, Soft Labs: CBC, BMP 12/01/16 06:30 12/01/16 06:30 Assessment/Plan - Problems (1) Arm pain Assessment/Plan: -pain management -increase gabapentin to 800 mg po TID Code(s): M79.603 - PAIN IN ARM, UNSPECIFIED Qualifiers: Laterality: right Qualified Code(s): M79.601 - Pain in right arm; M79.601 - Pain in right arm (2) Unsteady gait Assessment/Plan: -Physical therapy -EMG Code(s): R26.81 - UNSTEADINESS ON FEET (3) Burning sensation Assessment/Plan: -BL Upper extremity--MAYBE CTS -Patient was a heavy alcohol drinker and smoker prior to his CVA in 2014. However, his alcohol levels in 2016 ER visit were high. -REPLACE B12 -CACHORRO positive 10/2016, although pattern wasn't performed -last A1c 10/2016 was 5.6 -would need nerve conduction studies-EMG ORDERED Code(s): R20.8 - OTHER DISTURBANCES OF SKIN SENSATION (4) Knee pain, bilateral Assessment/Plan: -recent Xray BL knee showed mild OA -PT Code(s): M25.561 - PAIN IN RIGHT KNEE M25.562 - PAIN IN LEFT KNEE D/W PT WOULD BENEFIT FROM SNF
[2016-12-02] MEDS: FLUTICASONE/SALMETEROL 100 MCG/50 MCG DISKUS IH SCH ×2 (09:14→21:10)
[2016-12-02] MEDS: amLODIPine BESYLATE 10 MG TABLET (FP) PO SCH (09:14)
[2016-12-02] MEDS: ASPIRIN 81 MG CHEWABLE TABLETS PO SCH (09:14)
[2016-12-02] MEDS ORDERED: predniSONE 20 MG TABLET (UD) PO SCH (10:00)
--- NOTE | 2016-12-02 10:03 | PN ---
Progress Note (short form) - Note Progress Note: Neurology History of Present Illness 56-year-old male presents to the ED with continual burning to his arms hands and feet for the past few months despite being on Neurontin and Naprosyn. Patient states was seen by Dr. Araya for this and showed me a series of medication which included carbidopa/levodopa, gabapentin 300, and naprosyn 500. Patient states the burning tingling pain is keeping him up at night causing him increased irritability and inability to function on a daily basis. Patient does have history of CVA with left-sided residual, hypertension, high cholesterol, and denies any drug or alcohol use presently. Does not have tremor, no rigidity , no masked facies. No bradykinesia noted and we discussed that Sinemet likley not needed. Had been started on Andra 600mg three times a day. Patient with generalized pain complaints, still reports numbness, tingling, but also discomfort throughout. Gabapentin increased to 800mg three times a day. PCP also started steroids. consulted. Patient getting Oxycodone as well. Active Medications Albuterol/Ipratropium (Duoneb -) 1 amp NEB Q6H PRN PRN Reason: SHORTNESS OF BREATH Amlodipine Besylate (Norvasc -) 10 mg PO DAILY [facility] Last Admin: 12/02/16 09:14 Dose: 10 mg Aspirin (Asa -) 81 mg PO DAILY [facility] Last Admin: 12/02/16 09:14 Dose: 81 mg Atorvastatin Calcium (Lipitor -) 20 mg PO HS [facility] Last Admin: 12/01/16 21:32 Dose: 20 mg Gabapentin (Neurontin -) 800 mg PO TID [facility] Lidocaine HCl (Xylocaine 5% Top. Ointment) 1 applic MM BID [facility] Last Admin: 12/01/16 21:33 Dose: 1 applic Methylprednisolone Sodium Succinate (Solu-Medrol -) 125 mg IVPB ONCE ONE Stop: 12/02/16 10:16 Oxycodone HCl (Roxicodone -) 5 mg PO Q8H PRN PRN Reason: PAIN Last Admin: 12/02/16 02:54 Dose: 5 mg Pramipexole Dihydrochloride (Mirapex -) 0.25 mg PO HS [facility] Last Admin: 12/01/16 21:33 Dose: 0.25 mg Prednisone (Deltasone -) 40 mg PO DAILY [facility] Fluticasone/Salmeterol (Advair 100mcg/50mcg -) 1 puff IH BID [facility] Last Admin: 12/02/16 09:14 Dose: 1 puff *Physical Exam Vital Signs Temperature 97.9 F 12/02/16 08:35 Pulse Rate 74 12/02/16 08:35 Respiratory Rate 20 12/02/16 08:35 Blood Pressure 126/91 12/02/16 08:35 O2 Sat by Pulse Oximetry (%) 96 12/02/16 02:00 - Physical Exam General Appearance: Yes: Nourished, Appropriately Dressed. No: Apparent Distress HEENT: negative: Pale Conjunctivae Neck: positive: Supple Respiratory/Chest: positive: Lungs Clear, Normal Breath Sounds. negative: Respiratory Distress, Accessory Muscle Use Cardiovascular: positive: Regular Rhythm, Regular Rate. negative: Murmur Gastrointestinal/Abdominal: positive: Soft. negative: Tenderness Musculoskeletal: negative: CVA Tenderness Extremity: positive: Normal Capillary Refill Integumentary: positive: Normal Color, Warm, Moist Neurologic: positive: Normal Mood/Affect, Motor Strength grossly intact, sensory equal bilaterally, finger to nose normal, gait deferred CBCD WBC 6.9 K/mm3 (4.0-10.0) 12/01/16 06:30 RBC 4.70 M/mm3 (4.00-5.60) 12/01/16 06:30 Hgb 14.4 GM/dL (11.7-16.9) 12/01/16 06:30 Hct 43.0 % (35.4-49) 12/01/16 06:30 MCV 91.4 fl (80-96) 12/01/16 06:30 MCHC 33.5 g/dl (32.0-35.9) 12/01/16 06:30 RDW 13.6 % (11.9-15.9) 12/01/16 06:30 Plt Count 210 K/MM3 (134-434) 12/01/16 06:30 MPV 8.1 fl (7.5-11.1) 12/01/16 06:30 CMP Sodium 138 mmol/L (136-145) 12/01/16 06:30 Potassium 3.9 mmol/L (3.5-5.1) 12/01/16 06:30 Chloride 104 mmol/L (98-107) 12/01/16 06:30 Carbon Dioxide 27 mmol/L (21-32) 12/01/16 06:30 Anion Gap 7 (8-16) L 12/01/16 06:30 BUN 22 mg/dL (7-18) H 12/01/16 06:30 Creatinine 0.9 mg/dL (0.7-1.3) 12/01/16 06:30 Creat Clearance w eGFR > 60 (>60) 12/01/16 06:30 Calcium 9.2 mg/dL (8.5-10.1) 12/01/16 06:30 Total Bilirubin 0.4 mg/dL (0.2-1.0) 12/01/16 06:30 AST 10 U/L (15-37) L D 12/01/16 06:30 ALT 23 U/L (12-78) 12/01/16 06:30 Alkaline Phosphatase 57 U/L (45-117) 12/01/16 06:30 Total Protein 6.7 g/dl (6.4-8.2) 12/01/16 06:30 Albumin 3.7 g/dl (3.4-5.0) 12/01/16 06:30 Plan 56-year-old male presents to the ED with continual burning to his arms hands and feet for the past few months despite being on Neurontin and Naprosyn. Patient states was seen by Dr. Araya for this and showed me a series of medication which included carbidopa/levodopa, gabapentin 300, and naprosyn 500. Does not have tremor, no rigidity, no masked facies. No bradykinesia noted and we discussed that Sinemet likley not needed. Andra increased to 800mg up to three times a day. If this is not effective, Lyrica 100 three times a day can be tried Also on oxycodone Started on steroid treatment Dr. ceballos consulted Continue blood pressure medication, goal BP < 140/90 Continue statin for HLD, goal LDL <100
[2016-12-02] MEDS ORDERED: methylPREDNISolone NA SUCC 125 MG/2 ML VIAL IVPB ONE (10:15)
[2016-12-02] MEDS: LIDOCAINE HCL 5% TOP OINTMENT 50 GM TUBE MM SCH ×2 (10:53→21:11)
[2016-12-02] MEDS: GABAPENTIN 400 MG CAPSULE (FP) PO SCH ×2 (14:21→21:11)
--- NOTE | 2016-12-02 20:26 | CONS ---
PHYSICAL MEDICINE REHABILITATION AND ELECTRODIAGNOSTIC CONSULTATION DATE OF CONSULTATION WELL ELECTRODIAGNOSTIC STUDIES: 12/02/2016 REFERRING PHYSICIAN: Larissa Olson MD DATE OF ADMISSION: 11/29/2016 HISTORY OF PRESENT ILLNESS: Patient is a 56-year-old man with past medical history of a CVA in 2013 with some mild residual right-sided weakness and a history of heavy tobacco smoking, 2 packs per day, in the past; carotid stenosis; COPD, who presented with burning in both of his upper extremities as well as some pain in his feet and difficulty walking. He was recently admitted to the hospital and placed on Mirapex and Sinemet. The patient declined to take the medication but thought maybe some of this was side effects from the medication, but over the last few weeks, he has developed worsening symptoms. The numbness can wake him up at night in his hands, and it is burning up into the forearms. Again, he does have some symptoms in the left more than the right foot and some difficulty walking. Patient did undergo neurologic evaluation as well as blood work. CBC showed normal WBCs, 6.9; hemoglobin 14.4; platelet count 210. ESR of 2. His chemistries showed a B12 level which was low normal, 281, and he apparently did get an IM B12 shot. He was also placed on Deltasone and remains on Neurontin 800 mg 3 times a day, which had been increased recently. Oxycodone does help with the pain. Patient does not drop things, but again, he does have some difficulty with his ambulation. Baseline, he had a little bit of difficulty using a straight cane outside the home. Patient was referred by Dr. Olson for electrodiagnostic evaluation. PAST MEDICAL AND SURGICAL HISTORY: As above, CVA in 2014, carotid stenosis, COPD, hypertension. SOCIAL HISTORY: He lives alone in an apartment. He has an aide. He does not require assistive device premorbidly within the home but does use one outside the house. He uses a straight cane. CURRENT FUNCTION: He was seen by Physical Therapy, able to ambulate 75 feet with a straight cane, waddling gait with contact guard. REVIEW OF SYSTEMS: No dizziness, lightheadedness. No chest pain, shortness of breath. He does get dyspneic with exertion at times. No bowel or bladder complaints. No fever or chills. Again, he gets burning in the hands and forearms, numbness and tingling, and also, pain in the left more than right foot with difficulty walking. PHYSICAL EXAMINATION: General: Patient is seen both sitting, standing, and ambulating. HEENT: Normocephalic and atraumatic. His extraocular muscles appear intact. Neck: Supple. Extremities: Without any calf tenderness or pitting edema. Skin: Without any rash or breakdown. Neuromuscular: He is awake, alert, and cooperative. Cranial nerves 2-12 are grossly intact. He does have some diminished sensation more in a median than ulnar distribution, and he does have thenar weakness with fairly good hypothenar strength. He has a little bit of soft tissue swelling in the hands. In the lower extremities, he has normal sensation to cold touch as well as vibration, and he is fairly sensitive to pinprick. He has a little bit of weakness in ticketing agent in the left more than right upper extremity but fairly good motor power otherwise in the upper and lower extremities. His gait is very waddling and antalgic, but he can ambulate short distance. RESULTS OF ELECTROMYOGRAM NERVE CONDUCTION STUDIES: Please refer to report for details. OVERALL IMPRESSION: 1. No comparison study is available. 2. 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 3. Bilateral moderate carpal tunnel syndrome. 4. Gait disorder. 5. Low B12 level, 281; for which, the patient states he did get an intramuscular B12 injection, although I do not find this in the medical record. PLAN/SUGGESTION: 1. Patient will be a good candidate for bilateral cockup splints. 2. Consider cortisone injections in the carpal tunnel. 3. Follow up with Neurology as directed. 4. Physical therapy. 5. Continue gabapentin. Consider Lyrica per Dr. Su if pain not controlled. Thank you for this consultation. PEPE ARGUETA M.D. CHER/[id number] MTDD
[2016-12-02] MEDS: ATORVASTATIN CA 20 MG TABLET (FP) PO SCH (21:11)
[2016-12-02] MEDS: PRAMIPEXOLE DIHYDROCHLORIDE 0.25 MG TABLET PO SCH (21:11)
[2016-12-03] MEDS: GABAPENTIN 400 MG CAPSULE (FP) PO SCH ×2 (06:07→13:59)
[2016-12-03] MEDS ORDERED: PT OWN MED DRAWER 7, Y5N ONE (09:54)
[2016-12-03] MEDS: amLODIPine BESYLATE 10 MG TABLET (FP) PO SCH (09:57)
[2016-12-03] MEDS: ASPIRIN 81 MG CHEWABLE TABLETS PO SCH (09:57)
[2016-12-03] MEDS: LIDOCAINE HCL 5% TOP OINTMENT 50 GM TUBE MM SCH ×2 (09:58→10:02)
[2016-12-03] MEDS: FLUTICASONE/SALMETEROL 100 MCG/50 MCG DISKUS IH SCH (09:58)
[2016-12-03] MEDS ORDERED: predniSONE 20 MG TABLET (UD) PO SCH (10:00)
[2016-12-03] MEDS ORDERED: CYANOCOBALAMIN (VITAMIN B-12) 1000 MCG/1 ML VIAL IM SCH (10:45)
--- NOTE | 2016-12-03 11:40 | DS ---
Physical Examination Vital Signs: Vital Signs Temperature 98.2 F 12/03/16 08:52 Pulse Rate 80 12/03/16 08:52 Respiratory Rate 18 12/03/16 08:52 Blood Pressure 139/94 12/03/16 08:52 O2 Sat by Pulse Oximetry (%) 96 12/03/16 05:00 Findings/Remarks: MUCH IMPROVED AMBULATING DENIES PAIN Cardiovascular: Yes: Regular Rate and Rhythm Respiratory: Yes: Regular, CTA Bilaterally Gastrointestinal: Yes: Normal Bowel Sounds, Soft Labs: CBC, BMP 12/01/16 06:30 12/01/16 06:30 Discharge Summary Reason For Visit: INTRACTABLE PAIN Current Active Problems Arm pain (Acute) Burning sensation (Acute) Burning sensation in lower extremity (Acute) Chronic obstructive airway disease (Acute) Hemiparesis affecting left side as late effect of cerebrovascular accident ( Acute) Intractable pain (Acute) Knee pain, bilateral (Acute) Unsteady gait (Acute) Weakness (Acute) Hospital Course: 55 year old male, with a significant past medical history of CVA in 2013 with residual R sided weakness (hx of smoking 2 packs/day) , carotid stenosis, COPD, and HTN, who presents to the emergency department with burning sensation in his bilateral UE burning sensation because of which he is not able to sleep he was recently admitted for this same problem at hospital started on mirapex and sinemet and he when to see dr ponce on mondaynov 25 for follow up he says he doesnot have parkinson and refuse to take that medicine and wants to see another neurologist in ER he still complaining of bilateral UE burning got percocet and mirapex History Source: Patient, Medical Record - Past Medical History [employer]: Yes: CVA Cardiovascular: Yes: HTN Pulmonary: Yes: COPD - Smoking History Smoking history: Former smoker- Problems (1) Arm pain Assessment/Plan: -pain IMPROVED -increase gabapentin to 800 mg po TID Code(s): M79.603 - PAIN IN ARM, UNSPECIFIED Qualifiers: Laterality: right Qualified Code(s): M79.601 - Pain in right arm; M79.601 - Pain in right arm (2) Unsteady gait Assessment/Plan: -Physical therapy -EMG DONE SEE REPORT Code(s): R26.81 - UNSTEADINESS ON FEET (3) Burning sensation Assessment/Plan: -BL Upper extremity--MAYBE CTS -Patient was a heavy alcohol drinker and smoker prior to his CVA in 2014. However, his alcohol levels in 2016 ER visit were high. -REPLACE B12 -CACHORRO positive 10/2016, although pattern wasn't performed -last A1c 10/2016 was 5.6 -would need nerve conduction studies-EMG NOTED Code(s): R20.8 - OTHER DISTURBANCES OF SKIN SENSATION (4) Knee pain, bilateral Assessment/Plan: -recent Xray BL knee showed mild OA -PT Code(s): M25.561 - PAIN IN RIGHT KNEE M25.562 - PAIN IN LEFT KNEE D/W PT DC PLAN--DOING BETTER-WILL F/U WITH PMD AND NEUROLOGY - Instructions Diet, Activity, Other Instructions: SEE YOUR DOCTOR ON MONDAY YOU NEED B12 SHOTS FOLLOW LABS NEUROLOGY FOLLOW UP Referrals: Rainer Araya MD [Primary Care Provider] - - Home Medications Comprehensive Discharge Medication List: Ambulatory Orders Amlodipine Besylate 10 mg PO DAILY 11/13/16 Aspirin [ASA -] 81 mg PO HS 11/13/16 Atorvastatin Ca [Lipitor] 20 mg PO HS 11/13/16 Ipratropium/Albuterol Sulfate [Combivent Respimat Inhal [place]] 4 gm IH DAILY Salmeterol/Fluticasone [Advair 250Mcg/50Mcg -] 1 inh IH DAILY 11/13/16 Cyanocobalamin Vit B-12 Inj. [Vitamin B12 Injection -] 1,000 mcg IM DAILY vial 12/03/16 Gabapentin [Neurontin -] 800 mg PO Q8H #60 capsule 12/03/16 Pramipexole Dihydrochloride [Mirapex -] 0.25 mg PO HS #30 tablet 12/03/16 Prednisone [Deltasone -] 10 mg PO ASDIR #21 tab 12/03/16
--- NOTE | 2016-12-03 13:26 | PN ---
Progress Note (short form) - Note Progress Note: Neurology History of Present Illness 56-year-old male presents to the ED with continual burning to his arms hands and feet for the past few months despite being on Neurontin and Naprosyn. Patient states was seen by Dr. Araya for this and showed me a series of medication which included carbidopa/levodopa, gabapentin 300, and naprosyn 500. Patient states the burning tingling pain is keeping him up at night causing him increased irritability and inability to function on a daily basis. Patient does have history of CVA with left-sided residual, hypertension, high cholesterol, and denies any drug or alcohol use presently. Does not have tremor, no rigidity , no masked facies. No bradykinesia noted and we discussed that Sinemet likley not needed. Had been started on Andra 600mg three times a day. Patient with generalized pain complaints, still reports numbness, tingling, but also discomfort throughout. Gabapentin increased to 800mg three times a day. PCP also started steroids. consulted and completed EMG, reviewed in detail. No evidence of radiculopathy or neuropathy. Patient feels improved today and ambulatory. Was able to walk with me in hallway. Discussed outpatient follow up and coordinated care. Active Medications Albuterol/Ipratropium (Duoneb -) 1 amp NEB Q6H PRN PRN Reason: SHORTNESS OF BREATH Amlodipine Besylate (Norvasc -) 10 mg PO DAILY [facility] Last Admin: 12/03/16 09:57 Dose: 10 mg Aspirin (Asa -) 81 mg PO DAILY [facility] Last Admin: 12/03/16 09:57 Dose: 81 mg Atorvastatin Calcium (Lipitor -) 20 mg PO HS [facility] Last Admin: 12/02/16 21:11 Dose: 20 mg Cyanocobalamin (Vitamin B12 Injection -) 1,000 mcg IM DAILY [facility] Last Admin: 12/03/16 13:15 Dose: 1,000 mcg Gabapentin (Neurontin -) 800 mg PO TID [facility] Last Admin: 12/03/16 06:07 Dose: 800 mg Lidocaine HCl (Xylocaine 5% Top. Ointment) 1 applic MM BID [facility] Last Admin: 12/03/16 10:02 Dose: Not Given Oxycodone HCl (Roxicodone -) 5 mg PO Q8H PRN PRN Reason: PAIN Last Admin: 12/02/16 21:11 Dose: 5 mg Pramipexole Dihydrochloride (Mirapex -) 0.25 mg PO HS [facility] Last Admin: 12/02/16 21:11 Dose: 0.25 mg Prednisone (Deltasone -) 40 mg PO DAILY [facility] Last Admin: 12/03/16 09:57 Dose: 40 mg Fluticasone/Salmeterol (Advair 100mcg/50mcg -) 1 puff IH BID [facility] Last Admin: 12/03/16 09:58 Dose: 1 puff *Physical Exam Vital Signs Temperature 97.8 F 12/03/16 12:00 Pulse Rate 83 12/03/16 12:00 Respiratory Rate 18 12/03/16 12:00 Blood Pressure 122/76 12/03/16 12:00 O2 Sat by Pulse Oximetry (%) 98 12/03/16 09:00 - Physical Exam General Appearance: Yes: Nourished, Appropriately Dressed. No: Apparent Distress HEENT: negative: Pale Conjunctivae Neck: positive: Supple Respiratory/Chest: positive: Lungs Clear, Normal Breath Sounds. negative: Respiratory Distress, Accessory Muscle Use Cardiovascular: positive: Regular Rhythm, Regular Rate. negative: Murmur Gastrointestinal/Abdominal: positive: Soft. negative: Tenderness Musculoskeletal: negative: CVA Tenderness Extremity: positive: Normal Capillary Refill Integumentary: positive: Normal Color, Warm, Moist Neurologic: positive: Normal Mood/Affect, Motor Strength grossly intact, sensory equal bilaterally, finger to nose normal, gait deferred CBC,CMP WBC 6.9 K/mm3 (4.0-10.0) 12/01/16 06:30 RBC 4.70 M/mm3 (4.00-5.60) 12/01/16 06:30 Hgb 14.4 GM/dL (11.7-16.9) 12/01/16 06:30 Hct 43.0 % (35.4-49) 12/01/16 06:30 MCV 91.4 fl (80-96) 12/01/16 06:30 MCH 30.6 pg (25.7-33.7) 12/01/16 06:30 MCHC 33.5 g/dl (32.0-35.9) 12/01/16 06:30 RDW 13.6 % (11.9-15.9) 12/01/16 06:30 Plt Count 210 K/MM3 (134-434) 12/01/16 06:30 MPV 8.1 fl (7.5-11.1) 12/01/16 06:30 Neutrophils % 59.1 % (42.8-82.8) 12/01/16 06:30 Lymphocytes % 29.2 % (8-40) 12/01/16 06:30 Monocytes % 8.0 % (3.8-10.2) 12/01/16 06:30 Eosinophils % 3.5 % (0-4.5) 12/01/16 06:30 Basophils % 0.2 % (0-2.0) 12/01/16 06:30 ESR 2 mm/hr (0-20) 12/01/16 06:30 Sodium 138 mmol/L (136-145) 12/01/16 06:30 Potassium 3.9 mmol/L (3.5-5.1) 12/01/16 06:30 Chloride 104 mmol/L (98-107) 12/01/16 06:30 Carbon Dioxide 27 mmol/L (21-32) 12/01/16 06:30 Anion Gap 7 (8-16) L 12/01/16 06:30 BUN 22 mg/dL (7-18) H 12/01/16 06:30 Creatinine 0.9 mg/dL (0.7-1.3) 12/01/16 06:30 Creat Clearance w eGFR > 60 (>60) 12/01/16 06:30 Random Glucose 93 mg/dL (74-106) 12/01/16 06:30 Calcium 9.2 mg/dL (8.5-10.1) 12/01/16 06:30 Phosphorus 3.4 mg/dL (2.5-4.9) D 11/30/16 06:10 Magnesium 1.8 mg/dL (1.8-2.4) 12/01/16 06:30 Iron 58 ug/dL (38-169) 12/01/16 06:30 TIBC 253 ug/dL (250-450) 12/01/16 06:30 Iron Saturation 23 % (15-55) 12/01/16 06:30 Ferritin 184.546 ng/ml (16.4-293.9) 12/01/16 06:30 Total Bilirubin 0.4 mg/dL (0.2-1.0) 12/01/16 06:30 AST 10 U/L (15-37) L D 12/01/16 06:30 ALT 23 U/L (12-78) 12/01/16 06:30 Alkaline Phosphatase 57 U/L (45-117) 12/01/16 06:30 C-Reactive Protein 1.0 MG/DL (0.00-0.3) H 12/01/16 06:30 Total Protein 6.7 g/dl (6.4-8.2) 12/01/16 06:30 Albumin 3.7 g/dl (3.4-5.0) 12/01/16 06:30 Vitamin B12 281 pg/ml (180-914) 12/01/16 06:30 Serum Folate 18 ng/ml (3.1-17.5) H 12/01/16 06:30 Plan 56-year-old male presents to the ED with continual burning to his arms hands and feet for the past few months despite being on Neurontin and Naprosyn. Patient states was seen by Dr. Araya for this and showed me a series of medication which included carbidopa/levodopa, gabapentin 300, and naprosyn 500. Does not have tremor, no rigidity, no masked facies. No bradykinesia noted and we discussed that Sinemet likley not needed. Andra increased to 800mg up to three times a day. EMG completed and reviewed in detail, discussed with patient Started on steroid treatment, much improved in conjuction with Gabapentin and oxycodone Continue blood pressure medication, goal BP < 140/90 Continue statin for HLD, goal LDL <100 Ambulatory, no longer in distress For discharge, outpatient follow up discussed and coordinated
[2016-12-03 15:28] VITALS: BP 124/82; PULSE 86; TEMP 98.9
[2016-12-03] MEDS ORDERED: predniSONE 20 MG TABLET (UD) PO ONE (18:15)
[2016-12-04 15:08] LABS: LYME IGM WB. INTERP <0.80
--- NOTE | 2016-12-09 11:58 | EKG ---
Test Reason : Blood Pressure : / mmHG Vent. Rate : 056 BPM Atrial Rate : 056 BPM P-R Int : 178 ms QRS Dur : 084 ms QT Int : 414 ms P-R-T Axes : 056 007 065 degrees QTc Int : 399 ms SINUS BRADYCARDIA SEPTAL INFARCT (CITED ON OR BEFORE 13-NOV-2016) ABNORMAL ECG WHEN COMPARED WITH ECG OF 13-NOV-2016 10:, NO SIGNIFICANT CHANGE WAS FOUND REPEAT EKG IF CLINICALLY INDICATED Confirmed by LEXI ALCAZAR MD ([id number]) on 11/29/2016 9:40:18 PM Also confirmed by LEXI ALCAZAR MD ([id number]), managing editor ARTHUR FERRERA ([id number]) on 12/09/2016 10:46:24 AM Also confirmed by LEXI ALCAZAR MD ([id number]), managing editor ALEX CHAN ([id number]) on 12/09/2016 11:58:12 AM Referred By: Confirmed By:LEXI ALCAZAR MD
== END 2016-12-03 19:54 | disposition home or self-care (01) ==
LOC: JER 09:25 → JERBED 14:17 → J6S 20:54
PROVIDERS: ADMIT Student in an Organized Health Care Education/Training Program; ATTEND Student in an Organized Health Care Education/Training Program
PROC: 3E033NZ Introduction of Analgesics, Hypnotics, Sedatives into Peripheral Vein, Percutaneous Approach (ICD-10-PCS; principal; 2016-11-29)
PROC: 3E023GC Introduction of Other Therapeutic Substance into Muscle, Percutaneous Approach (ICD-10-PCS; 2016-11-29)
PROC: 3E0F7GC Introduction of Other Therapeutic Substance into Respiratory Tract, Via Natural or Artificial Opening (ICD-10-PCS; 2016-11-29)
DX: R20.8 Other disturbances of skin sensation (principal); I69.354 Hemiplegia and hemiparesis following cerebral infarction affecting left non-dominant side; I10 Essential (primary) hypertension; E78.00 Pure hypercholesterolemia, unspecified; J44.9 Chronic obstructive pulmonary disease, unspecified; J45.909 Unspecified asthma, uncomplicated; G20 Parkinson's disease; F02.80 Dementia in other diseases classified elsewhere, unspecified severity, without behavioral disturbance, psychotic disturbance, mood disturbance, and anxiety; Z88.8 Allergy status to other drugs, medicaments and biological substances; Z79.82 Long term (current) use of aspirin; Z87.891 Personal history of nicotine dependence; M79.601 Pain in right arm; R26.81 Unsteadiness on feet; M25.561 Pain in right knee; M25.562 Pain in left knee
CPT/HCPCS: 36415; 71020-TC; 71260-TC; 80053; 82607; 82728; 82746; 83540; 83550; 83735; 84100; 85025; 85651; 86038; 86140; 93005; 93010; 94640; 95860-TC; 96372; 96374; 97116-GP; 97161-GP; 99282-25; G0378

== ENCOUNTER 2024-04-17 17:54 | Observation (INO) | payer OTHER ==
[2024-04-17 18:29] VITALS: TEMP 98.2; BMI 28.1
[2024-04-17 19:17] LABS: BASO % 0.4 % (0-2.0); EOS % 1.6 % (0-4.5); HEMATOCRIT 48.6 % (35.4-49); HEMOGLOBIN 16.2 GM/dL (11.7-16.9); LYMPH % 36.7 % (8-40); MCH 31.6 pg (25.7-33.7); MCHC 33.4 g/dl (32.0-35.9); MEAN CELL VOLUME 94.6 fl (80-96); MONO % 7.7 % (3.8-10.2); NEUT % 53.6 % (42.8-82.8); PLATELET COUNT 175 10^3/uL (134-434); RBC 5.14 M/mm3 (4.00-5.60); RDW 13.9 % (11.9-15.9); WHITE BLOOD COUNT 6.5 K/mm3 (4.0-10.0)
[2024-04-17 19:28] LABS: ACTIVATED PTT 30.9 SECONDS (25.2-36.5)
[2024-04-17 19:48] LABS: POTASSIUM 4.2 mmol/L (3.5-5.1)
[2024-04-17 19:51] LABS: CALCIUM 9.1 mg/dL (8.5-10.1)
[2024-04-17 19:52] LABS: ALBUMIN 3.8 g/dl (3.4-5.0); BLOOD UREA NITROGEN 36.8 mg/dL (7-18)
[2024-04-17 19:55] LABS: CREATININE 1.3 mg/dL (0.55-1.3)
[2024-04-17 19:56] LABS: BILIRUBIN,TOTAL 0.6 mg/dL (0.2-1); TOT PROT 6.9 g/dl (6.4-8.2)
[2024-04-18] MEDS ORDERED: ATORVASTATIN CA 80 MG TABLET (FP) PO SCH ×2 (01:39→22:52)
[2024-04-18] MEDS ORDERED: ACETAMINOPHEN 325 MG TABLET (FP) PO PRN (01:40)
[2024-04-18] MEDS ORDERED: CARBIDOPA/LEVODOPA 25/100 TABLET (FP) ONE ×2 (01:44→06:11)
[2024-04-18] MEDS ORDERED: DOCUSATE SODIUM 100 MG CAPSULE (FP) PO PRN (04:28)
[2024-04-18 05:15] VITALS: RESP 20
[2024-04-18] MEDS ORDERED: HEPARIN NA (PORCINE) 5,000 UNITS/ML 1ML VIAL ONE (06:11)
[2024-04-18] MEDS: HEPARIN NA (PORCINE) 5,000 UNITS/ML 1ML VIAL SQ SCH (06:15)
[2024-04-18] MEDS ORDERED: CARBIDOPA/LEVODOPA 25/100 TABLET (FP) PO SCH (10:00)
[2024-04-18] MEDS ORDERED: DOCUSATE SODIUM 100 MG CAPSULE (FP) PO SCH (10:00)
[2024-04-18] MEDS: EMPAGLIFLOZIN (JARDIANCE) 10 MG TABLET PO SCH (10:47)
[2024-04-18] MEDS: CHOLECALCIFEROL (VIT D3) 1,000 UNIT (25 MCG) TABLET PO SCH (10:49)
[2024-04-18] MEDS ORDERED: amLODIPine BESYLATE 5 MG TABLET (FP) ONE (10:50)
[2024-04-18] MEDS ORDERED: PANTOPRAZOLE 40 MG TABLET PO ONE (10:50)
[2024-04-18] MEDS ORDERED: ASPIRIN 81 MG CHEWABLE TABLETS ONE (10:51)
[2024-04-18] MEDS ORDERED: MAGNESIUM OXIDE 400 MG TABLET (FP) ONE (10:51)
[2024-04-18] MEDS ORDERED: ISOSORBIDE MONONITRATE 30 MG TAB.SR.24H (FP) PO ONE (10:51)
[2024-04-18] MEDS: amLODIPine BESYLATE 5 MG TABLET (FP) PO SCH (10:52)
[2024-04-18] MEDS: ASPIRIN COATED 81 MG TABLET.EC PO SCH (10:52)
[2024-04-18] MEDS: PANTOPRAZOLE 40 MG TABLET PO SCH (10:52)
[2024-04-18] MEDS: MAGNESIUM OXIDE 400 MG TABLET (FP) PO SCH (10:52)
[2024-04-18] MEDS: ISOSORBIDE MONONITRATE 30 MG TAB.SR.24H (FP) PO SCH (10:52)
[2024-04-18] MEDS ORDERED: CHOLECALCIFEROL (VIT D3) 1,000 UNIT (25 MCG) TABLET ONE (10:53)
[2024-04-18 13:28] VITALS: BP 141/73; PULSE 61
== END 2024-04-18 13:53 | disposition home or self-care (01) ==
LOC: JER 17:54 → JERBED 21:43
PROVIDERS: ADMIT Student in an Organized Health Care Education/Training Program; ATTEND Nurse Practitioner Family
PROC: 3E023GC Introduction of Other Therapeutic Substance into Muscle, Percutaneous Approach (ICD-10-PCS; principal; 2024-04-17)
DX: I11.9 Hypertensive heart disease without heart failure (principal); N17.9 Acute kidney failure, unspecified; G20.A1 Parkinson's disease without dyskinesia, without mention of fluctuations; E78.5 Hyperlipidemia, unspecified; K21.9 Gastro-esophageal reflux disease without esophagitis; E55.9 Vitamin D deficiency, unspecified; Z86.73 Personal history of transient ischemic attack (TIA), and cerebral infarction without residual deficits; Z95.5 Presence of coronary angioplasty implant and graft; Z87.891 Personal history of nicotine dependence
CPT/HCPCS: 36415; 71046-TC-FY; 80053; 84484; 85025; 85610; 85730; 93005; 93010; 96372; 99285-25; G0378; J1644